=== PATIENT | male | born 1985 | race Caucasian/White ===

== ENCOUNTER 2019-12-03 19:07 | Emergency (ER) | payer MEDICARE, SELFPAY ==
[2019-12-03 20:08] VITALS: BP 142/82; PULSE 60; RESP 18; TEMP 36; O2SAT 100; BMI 50.2
--- NOTE | 2019-12-03 21:29 | ED.DENTAL ---
HPI - Dental/Oral General Chief complaint: Dental/Oral Stated complaint: gum infection Time Seen by Provider: 12/03/19 21:29 History of Present Illness HPI Narrative: This is a 34-year-old male who has been seen here multiple times for extensive dental caries and has same at this visit as well. He states he is having significant difficulty getting evaluated by the dentist and was most recently treated with penicillin. He denies any fevers, chills, difficulty breathing, difficulty swallowing, ear pain. Teeth map: 1. 2. 3. Related Data Previous Rx's Medication Instructions Recorded amoxicillin-pot clavulanate 1 tab PO Q12H 7 Days #14 tab 12/03/19 [Augmentin] amoxicillin-pot clavulanate 1 tab PO Q12H 7 Days #14 tab 12/03/19 [Augmentin] Allergies Allergy/AdvReac Type Severity Reaction Status Date / Time No Known Allergies Allergy Unverified 11/12/19 17:16 [No Known Allergies*] Review of Systems Review of Systems: Pertinent positives and negatives as stated in the HPI. GEN: no fevers, chills, fatigue HEENT: no nasal congestion, sore throat, ear pain NEURO: no headache, dizziness, focal weakness PULM: no cough, shortness of breath CV: no chest pain, palpitations, LE edema ABD: no abdominal pain, nausea, vomiting, diarrhea : no dysuria, urgency, frequency SKIN: no rash ROS otherwise negative x 10 PMFSH Past Medical History Source: nursing notes reviewed Medical History Anxiety Back pain Depression PTSD (post-traumatic stress disorder) Social History Social History Alcohol intake: unknown Smoking Status: Unknown if ever smoked Use of substances other than those prescribed or required for medical reasons: Unknown Advance Directives: No Advance Directives Information Provided: No Physical Exam Vital Signs and I&O and Narrative: Vital Signs and I&O: Vital Signs Temp 96.8 F 12/03/19 20:08 Pulse 54 12/03/19 21:51 Resp 18 12/03/19 21:51 BP 147/95 H 12/03/19 21:51 Pulse Ox 97 12/03/19 21:51 Intake & Output 12/03/19 12/03/1912/03/20 06:59 18:59 06:59 Weight 149.924 kg Body Mass Index 50.2 VITAL SIGNS: Reviewed. GENERAL: Well developed, well nourished, in no acute distress. HEAD: Normocephalic/atraumatic, EYES: PERRLA, EOMI intact without pain, no nystagmus/pallor/icterus noted EARS: Ext canals without abnormality, TMs non-bulging and non-erythematous NOSE: Nares patent bilateral OROPHARYNX: no oral lesions noted, posterior pharynx clear and non-erythematous without noted tonsillar enlargement/erythema/exudates NECK: Supple, no adenopathy LUNGS: Normal breath sounds. No adventitious sounds or accessory muscle use. SpO2<97%> CARDIOVASCULAR: Regular rate and rhythm without noted murmurs, no JVD or lower extremity edema. ABDOMEN: Soft, non-tender, non-distended with bowel sounds. No rigidity. No guarding. No palpable masses or hernias noted MUSCULOSKELETAL: No tenderness, deformities, or effusions noted on gross inspection. EXTREMITIES: No cyanosis, clubbing or edema. SKIN: Inspection of the skin reveals no rashes, ulcerations, jaundice, pallor, or petechiae. NEUROLOGIC: Alert and oriented x 4. Strength and sensation to light touch were grossly intact x 4. Course Course Course Narrative: This is a 34-year-old male with history and clinical presentation consistent with acute on chronic dental caries there is no observed dental abscess at this time however multiple caries are noted that are likely causing pain. Patient was again encouraged to follow up with a dentist and discharged with antibiotics and a regimen of analgesics for pain control. Discharge Plan Discharge Clinical Impression: Dental caries, Toothache Patient Disposition: Home, Self-Care Instructions: Toothache (ED), Mouth Care (ED) Additional Instructions: 1. Tylenol 1000 mg, orally, every 6 hours as needed for pain control. Do not exceed 4000 mg within 24 hours. 2. ibuprofen 400 mg, orally with milk or food, every 6 hours as needed for pain control. 3. Anbesol, [id number] oral pain relief available in all drug stores, apply to gum and tooth area as directed on the outside packaging. 4. follow-up with a dentist by calling the office tomorrow morning and establishing an appointment. The patient and/or family acknowledge understanding of results (as applicable), diagnosis, treatment plan, need for follow up, and symptoms that should prompt a return to the emergency room. Prescriptions: New amoxicillin-pot clavulanate [Augmentin] 875-125 mg tablet 1 tab PO Q12H 7 Days Qty: 14 RF: 0 amoxicillin-pot clavulanate [Augmentin] 875-125 mg tablet 1 tab PO Q12H 7 Days Qty: 14 RF: 0 Referrals: Merry Draper MD [Primary Care Provider] - 2 days ( follow-up on dental caries) Interventions: ED Discharge Assessment Last Done: 12/03/19 21:53 Discharge Date/Time: 12/03/19 21:53
[2019-12-03] MEDS: Amoxicillin/Potassium Clav 875 MG TABLET PO (21:46)
[2019-12-03 21:51] VITALS: BP 147/95; PULSE 54; RESP 18; O2SAT 97
== END 2019-12-03 21:53 | disposition home or self-care (01) ==
PROVIDERS: Emergency Provider Student in an Organized Health Care Education/Training Program; PCP Family Medicine
DX: K02.9 Dental caries, unspecified (principal); K08.89 Other specified disorders of teeth and supporting structures
CPT/HCPCS: 99283; 99284

== ENCOUNTER 2020-01-10 12:02 | Emergency (ER) | payer MEDICARE, SELFPAY ==
[2020-01-10 13:35] VITALS: BP 137/71; PULSE 64; RESP 19; TEMP 36.6; O2SAT 100; BMI 44.1
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
== END 2020-01-10 14:00 | disposition home or self-care (01) ==
PROVIDERS: Emergency Provider Emergency Medicine; PCP Family Medicine
DX: K03.81 Cracked tooth (principal)
CPT/HCPCS: 99283

== ENCOUNTER 2020-03-14 15:24 | Emergency (ER) | payer MEDICARE, SELFPAY ==
[2020-03-14 15:58] VITALS: BP 148/68; PULSE 86; RESP 18; TEMP 36.8; O2SAT 98; BMI 44.5
--- NOTE | 2020-03-14 15:58 | XR_ITS ---
EXAMINATION: XR KNEE, LEFT CLINICAL INFORMATION: Fall 7 days ago with pain COMPARISON: None TECHNIQUE: Four views of the left knee. FINDINGS: Normal alignment with no fracture. Prepatellar soft tissue swelling. No joint effusion. No significant joint space narrowing. Small marginal osteophytes in the lateral compartment. XR/XR knee LT 4V IMPRESSION: No fracture. Prepatellar soft tissue swelling.
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
--- NOTE | 2020-03-14 18:00 | PC.NURSE ---
APPLIED ALESSIO WRAP TO L KNEE AND EDUCATED PATIENT ON USE OF CRUTCHES.
== END 2020-03-14 18:05 | disposition home or self-care (01) ==
PROVIDERS: Emergency Provider Emergency Medicine; PCP Family Medicine
DX: M25.462 Effusion, left knee (principal); M25.562 Pain in left knee
CPT/HCPCS: 73564; 99283

== ENCOUNTER → 2020-04-22 11:52 | Outpatient (BNVA) | payer MEDICARE, SELFPAY | PROVIDERS: PCP Family Medicine; Visit Provider Physician Assistant | DX: S80.02XA Contusion of left knee, initial encounter (principal) | CPT/HCPCS: 99202 ==

== ENCOUNTER 2020-05-12 17:55 | Outpatient (REF) | payer OTHER, SELFPAY ==
--- NOTE | ~2020-05-12 | MR_ITS ---
EXAMINATION: MR KNEE WITHOUT CONTRAST, LEFT CLINICAL INFORMATION: Left knee pressure, numbness, anterior swelling following a fall 1 month ago. Contusion. COMPARISON: Left knee radiographs dated 03/14/2020. Left knee CT dated 11/29/2012. TECHNIQUE: MRI of the knee without contrast was performed using routine sequences on a high-field scanner. FINDINGS: MENISCI: Medial Meniscus: Intact Lateral Meniscus: Bucket-handle tear of the lateral meniscus with approximately 50% of the meniscal volume displaced centrally. Tearing extends from the anterior root to the posterior root. LIGAMENTS: Cruciate: Intact. Collateral: Intact. EXTENSOR MECHANISM: Intact. ARTICULAR CARTILAGE/BONE: Patellofemoral Compartment: Normal. Medial Compartment: Normal. Lateral Compartment: Mild lateral tibial plateau articular cartilage thinning. Small marginal osteophytes. JOINT FLUID AND BURSAE: Trace joint effusion. Mild soft tissue edema overlying the anteromedial aspect of the patella, likely representing a soft tissue contusion. MR/MR knee LT wo con IMPRESSION: 1. Bucket-handle tear of the lateral meniscus with approximately 50% of the meniscal volume displaced centrally. Tearing extends from the anterior root to the posterior root. 2. Mild soft tissue edema along the anteromedial aspect of the patella, likely indicating a soft tissue contusion. 3. Mild lateral compartment arthrosis. Trace joint effusion.
== END 2020-05-12 17:56 | disposition home or self-care (01) ==
LOC: HO.MRI 17:55
PROVIDERS: Visit Provider Physician Assistant
DX: S80.02XA Contusion of left knee, initial encounter (principal)
CPT/HCPCS: 73721

== ENCOUNTER 2020-05-21 15:19 | Emergency (ER) | payer OTHER, SELFPAY ==
[2020-05-21 15:21] VITALS: BP 156/78; PULSE 82; RESP 18; TEMP 36.7; O2SAT 98; BMI 45.6
--- NOTE | 2020-05-21 16:05 | ED_ITS ---
HPI - Dental/Oral General Chief complaint: Dental/Oral Stated complaint: dental pain Time Seen by Provider: 05/21/20 15:41 Source: patient Mode of arrival: ambulatory Limitations: no limitations History of Present Illness HPI Narrative: 34-year-old male with a past medical history of poor dentition, anxiety, PTSD, depression, chronic back pain and gastric bypass for obesity presenting to the ED with complaints of severe dental pain in the lower aspect for the past few days worse today despite taking multiple [id number] Motrin and Tylenol. Reports that he has a dentist that he can follow-up with. Reports he was eating chicken today and bit down on a bone which broke a couple of his teeth and now has worsening pain. Denies any fevers or any other symptoms complaints or concerns at this time. MD Complaint: tooth pain Location: Tooth # (Lower right front teeth) Onset (ago): hour(s) (Prior to arrival) Duration: constant Severity: moderate Relieving factors: nothing Exacerbating factors: chewing Context: history of dental caries (Multiple dental fractures) and poor dental care Treatment prior to arrival: other (See above) Related Data Previous Rx's Medication Instructions Recorded amoxicillin-pot clavulanate 1 tab PO Q12H 7 Days #14 tab 12/03/19 [Augmentin] amoxicillin-pot clavulanate 1 tab PO Q12H 7 Days #14 tab 12/03/19 [Augmentin] hydrocodone-acetaminophen [[place]] 1 tab PO Q4-6H PRN #10 tab 01/10/20 ibuprofen 600 mg PO Q8H PRN #20 tab 01/10/20 penicillin V potassium 500 mg PO BID #14 tab 01/10/20 cephalexin [Keflex] 500 mg PO QID #28 cap 03/14/20 doxycycline monohydrate 100 mg PO BID 10 Days #20 cap 03/14/20 ibuprofen 600 mg PO Q8H PRN #20 tab 03/14/20 tramadol 50 mg PO BID PRN #7 tab 03/14/20 acetaminophen [Tylenol Extra 1,000 mg PO QID PRN #14 tab 05/21/20 Strength] amoxicillin-pot clavulanate 1 tab PO BID 14 Days #28 tab 05/21/20 [Augmentin] ibuprofen 800 mg PO Q8H PRN #14 tab 05/21/20 oxycodone 5 mg PO BID PRN #14 tab 05/21/20 Allergies Allergy/AdvReac Type Severity Reaction Status Date / Time No Known Allergies Allergy Verified 05/21/20 15:21 [No Known Allergies*] Review of Systems Review of Systems: Constitutional : No Fever, No Chills, No changes in PO intake, No difficulty speaking, no recent dental procedure, no heat or cold intolerance while eating, no recent face trauma, ENT/Mouth : + Dental pain, No Sore throt, No Jaw pain, No throat swelling, No swallowing difficulty, no change in voice, No facial swelling, no drooling, no trismus, no bleeding, no lacerations, no tongue swelling, gum swelling, Eyes: No Eye Pain, No periorbital Swelling Cardiovascular : No Chest Pain, No SOB Respiratory : No Cough, No Sputum, No Wheezing, No Smoke Exposure, No Dyspnea Gastrointestinal : No Nausea, No Vomiting, No Diarrhea Genitourinary : No Dysuria Musculoskeletal : No Myalgias Skin : No rash, no facial swelling or redness, Neuro : No Weakness, No Numbness, No Headache Yes all other systems are reviewed and are negative [facility] Past Medical History Attestation statement: The following information was validated with the patient. Medical History Anxiety Back pain Depression PTSD (post-traumatic stress disorder) Surgical History Gastric bypass status for obesity Social History Social History Alcohol intake: unknown Smoking Status: Light tobacco smoker Use of substances other than those prescribed or required for medical reasons: No Advance Directives: No Advance Directives Information Provided: No Current occupational status: unemployed Current occupation: lt hand Physical Exam Vital Signs: Vital Signs: Last Vital Signs Temp 98.0 F 05/21/20 15:21 Pulse 82 05/21/20 15:21 Resp 18 05/21/20 15:21 BP 156/78 H 05/21/20 15:21 Pulse Ox 98 05/21/20 15:21 Body Mass Index 45.6 vital signs have been reviewed as normal and appeared to be correct. Blood pressure normal. Heart rate normal. Respiration rate normal. Temperature normal. Oxygen saturation normal. Appearance: Alert. Oriented X3. No acute distress. Head: Normal external exam. Normocephalic. Atraumatic. Eyes: PERRLA. EOMI. Conjunctiva and sclera normal. Eyelids normal. ENT: EAC normal. TM's Normal. Pharynx normal. Uvula midline. Moist mucous membranes. No trismus noted. No drooling noted. No muffled voice noted. Dentition: Patient with poor dentition throughout with multiple old fractured teeth with multiple dental caries. Gingival within normal limits. No fluctuance. Not consistent with peritonsillar abscess. Not consistent with dental abscess. Not consistent with pharyngeal abscess. No salivary duct obstruction noted. Neck: Normal inspection. Neck supple. FROM. No adenopathy. Thyroid Normal. No meningeal signs. No neck mass noted. Trachea midline. CVS: Normal heart rate and rhythm. Heart sound normal. No murmurs noted. Pulses normal throughout. Respiratory: No respiratory distress. Painless inspiration. Breath sounds normal. No wheezes/rales/rhonchi noted. Chest nontender. No accessory muscle usage noted or decreased air movement noted. Back: Full range of motion noted. Skin: Skin warm and dry. Normal skin color. Normal skin turgor. No rashes/lesions/lacerations noted. Extremities:Extremities exhibit normal range of motion. Extremities nontender. Neuro: Oriented X 3. No motor deficit. No sensory deficit. Reflexes normal. [facility] - Dental/Oral Medical Records Attestation: I reviewed the patient's medical records. Lab Data Attestation: I reviewed the patient's lab results. Discharge Plan Discharge Clinical Impression: Dental caries, Fracture of tooth, Poor dentition Patient Disposition: Home, Self-Care Instructions: Toothache (ED) Prescriptions: New amoxicillin-pot clavulanate [Augmentin] 875-125 mg tablet 1 tab PO BID 14 Days Qty: 28 RF: 0 ibuprofen 800 mg tablet 800 mg PO Q8H PRN (Reason: pain) Qty: 14 RF: 0 oxycodone 5 mg tablet 5 mg PO BID PRN (Reason: pain) Qty: 14 RF: 0 acetaminophen [Tylenol Extra Strength] 500 mg tablet 1,000 mg PO QID PRN (Reason: fever or pain) Qty: 14 RF: 0 No Action amoxicillin-pot clavulanate [Augmentin] 875-125 mg tablet 1 tab PO Q12H 7 Days Qty: 14 RF: 0 amoxicillin-pot clavulanate [Augmentin] 875-125 mg tablet 1 tab PO Q12H 7 Days Qty: 14 RF: 0 penicillin V potassium 500 mg tablet 500 mg PO BID Qty: 14 RF: 0 ibuprofen 600 mg tablet 600 mg PO Q8H PRN (Reason: pain) Qty: 20 RF: 0 hydrocodone-acetaminophen [[place]] 5-325 mg tablet 1 tab PO Q4-6H PRN (Reason: pain) Qty: 10 RF: 0 doxycycline monohydrate 100 mg capsule 100 mg PO BID 10 Days Qty: 20 RF: 0 cephalexin [Keflex] 500 mg capsule 500 mg PO QID Qty: 28 RF: 0 ibuprofen 600 mg tablet 600 mg PO Q8H PRN (Reason: pain) Qty: 20 RF: 0 tramadol 50 mg tablet 50 mg PO BID PRN (Reason: pain) Qty: 7 RF: 0 Referrals: Merry Draper MD [Primary Care Provider] - 2 days Print Language: Qatari
== END 2020-05-21 16:34 | disposition home or self-care (01) ==
PROVIDERS: Emergency Provider Emergency Medicine; PCP Family Medicine
DX: K08.89 Other specified disorders of teeth and supporting structures (principal); K02.9 Dental caries, unspecified; F17.210 Nicotine dependence, cigarettes, uncomplicated; K03.81 Cracked tooth
CPT/HCPCS: 99283

== ENCOUNTER 2020-07-15 14:35 | Emergency (ER) | payer OTHER, SELFPAY ==
[2020-07-15 15:49] VITALS: BP 139/80; PULSE 69; RESP 20; TEMP 37.1; O2SAT 98; BMI 45.6
--- NOTE | 2020-07-15 17:12 | ED.DENTAL ---
HPI - Dental/Oral General Chief complaint: Dental/Oral Stated complaint: dental pain Time Seen by Provider: 07/15/20 16:56 Source: patient Mode of arrival: ambulatory Limitations: no limitations History of Present Illness HPI Narrative: 35 y/o male with history of poor dentition, obesity s/p gastric bypass, anxiety, PTSD who presents to the ER with weeks of worsening right lower dental pain and decay. He called his dentist this morning asking for antibiotics because he is worried about infection. He made an appointment for next week but he was not prescribed antibiotics without being seen. He reports pain and swelling of the area has increased over the last week. He has been taking Motrin without improvement. He is having pain with eating and drinking. He is vomiting saliva. He denies fever, chill, facial swelling, throat swelling, neck swelling. MD Complaint: tooth pain Location: Tooth # (26) Teeth map: 1. decaying rotten tooth with gingival edema Onset (ago): week(s) Duration: constant Severity: severe Severity scale (1-10): 9 Relieving factors: NSAIDs Exacerbating factors: chewing, cold, heat, drinking fluids and swallowing Context: history of dental caries and poor dental care Associated symptoms: gum swelling and pain with swallowing Treatment prior to arrival: none Related Data Previous Rx's Medication Instructions Recorded amoxicillin-pot clavulanate 1 tab PO Q12H 7 Days #14 tab 12/03/19 [Augmentin] amoxicillin-pot clavulanate 1 tab PO Q12H 7 Days #14 tab 12/03/19 [Augmentin] hydrocodone-acetaminophen [[place]] 1 tab PO Q4-6H PRN #10 tab 01/10/20 ibuprofen 600 mg PO Q8H PRN #20 tab 01/10/20 penicillin V potassium 500 mg PO BID #14 tab 01/10/20 cephalexin [Keflex] 500 mg PO QID #28 cap 03/14/20 doxycycline monohydrate 100 mg PO BID 10 Days #20 cap 03/14/20 ibuprofen 600 mg PO Q8H PRN #20 tab 03/14/20 tramadol 50 mg PO BID PRN #7 tab 03/14/20 acetaminophen [Tylenol Extra 1,000 mg PO QID PRN #14 tab 05/21/20 Strength] amoxicillin-pot clavulanate 1 tab PO BID 14 Days #28 tab 05/21/20 [Augmentin] ibuprofen 800 mg PO Q8H PRN #14 tab 05/21/20 oxycodone 5 mg PO BID PRN #14 tab 05/21/20 amoxicillin-pot clavulanate 1 tab PO BID #20 tab 07/15/20 [Augmentin] ondansetron HCl [Zofran] 4 mg PO Q8H PRN #10 tab 07/15/20 tramadol 50 mg PO Q8H PRN #7 tab 07/15/20 Allergies Allergy/AdvReac Type Severity Reaction Status Date / Time No Known Allergies Allergy Verified 05/21/20 15:21 [No Known Allergies*] Review of Systems Review of Systems: Constitutional: No Fever, No Chills ENT/Mouth: No sore throat, No Rhinorrhea, No Swallowing Difficulty, +painful swallowing, +dental pain Cardiovascular: No Chest Pain, No SOB Respiratory: No Cough, No Sputum Gastrointestinal:+ Nausea, + Vomiting, No Diarrhea, No abdominal Pain Genitourinary: No Dysuria, No Urinary Frequency, No Hematuria Skin: No Skin Lesions, No rash Neuro: No Weakness, No Numbness, No Dizziness, + Headache Heme/Lymph: No Bruising, + Lymphadenopathy [facility] Past Medical History Attestation statement: The following information was validated with the patient. Medical History Anxiety Back pain Depression PTSD (post-traumatic stress disorder) Surgical History Gastric bypass status for obesity Social History Social History Alcohol intake: unknown Smoking Status: Light tobacco smoker Advance Directives: No Advance Directives Information Provided: Yes Current occupational status: unemployed Current occupation: lt hand Physical Exam Vital Signs: Vital Signs: Last Vital Signs Temp 98.8 F 07/15/20 15:49 Pulse 69 07/15/20 15:49 Resp 20 07/15/20 15:49 BP 139/80 07/15/20 15:49 Pulse Ox 98 07/15/20 15:49 Body Mass Index 45.6 Const: General: cooperative, no acute distress and well developed Orientation/consciousness: patient oriented x3 HENMT: Head: Yes normal to inspection Ears: hearing grossly normal bilaterally General nose exam: Normal external nose present Face and sinus: Yes normal facial exam Mouth: Normal oral and palatal mucosa present, lip normal, tongue normal, Normal salivary glands and ducts present, oropharynx normal and moist mucous membranes Teeth and gingiva: abnormal tooth and associated gingiva lower right first bicuspid tender, with associated gingival edema, enamel fractured, dentin fractured and pulp exposed and gingiva abnormal edematous and tender Throat: Yes posterior oropharynx normal, Yes tonsils normal and Yes uvula midline Eyes: General: appearance normal, both eyes and all related structures Neck: Neck: Yes normal visual inspection, Yes no lymphadenopathy, Yes trachea midline, Yes supple and No anterior neck swelling Chest: Chest palpation & inspection: normal inspection of the chest Resp: Effort & Inspection: normal respiratory effort and able to speak in complete sentences Neuro: General: patient oriented x3 and moves all extremities Extrem: General: Yes normal to inspection Psych: Appearance: disheveled Mental Status: mental status grossly normal Speech and movement: Normal speech and movement present and Clear speech present Course Course Course Narrative: 35 y/o male presenting with acute on chronic tooth pain - right lower anterior tooth with decay and tenderness. No palpable abscess. No facial or neck swelling. Normal voice. Afebrile. No signs of systemic infection or Isai's angina. He has an appointment early next week with his dentist. Will treat with PO antibiotics and pain medication to get him through the weekend. Patient is agreeable with plan and stable for d/c home. Critical Care Time Critical Care Time Critical Care Time: No Discharge Plan Discharge Clinical Impression: Toothache Patient Disposition: Home, Self-Care Instructions: Toothache (ED) Additional Instructions: Follow up with your dentist as scheduled on Saturday. Take the prescribed antibiotic as directed. Take the prescribed medication as needed for pain. Do not drive after taking this medication. If you have worsening symptoms come back to the ER for further evaluation. Prescriptions: New amoxicillin-pot clavulanate [Augmentin] 875-125 mg tablet 1 tab PO BID Qty: 20 RF: 0 tramadol 50 mg tablet 50 mg PO Q8H PRN (Reason: pain) Qty: 7 RF: 0 ondansetron HCl [Zofran] 4 mg tablet 4 mg PO Q8H PRN (Reason: nausea and vomiting) Qty: 10 RF: 0 No Action amoxicillin-pot clavulanate [Augmentin] 875-125 mg tablet 1 tab PO Q12H 7 Days Qty: 14 RF: 0 amoxicillin-pot clavulanate [Augmentin] 875-125 mg tablet 1 tab PO Q12H 7 Days Qty: 14 RF: 0 amoxicillin-pot clavulanate [Augmentin] 875-125 mg tablet 1 tab PO BID 14 Days Qty: 28 RF: 0 ibuprofen 800 mg tablet 800 mg PO Q8H PRN (Reason: pain) Qty: 14 RF: 0 oxycodone 5 mg tablet 5 mg PO BID PRN (Reason: pain) Qty: 14 RF: 0 acetaminophen [Tylenol Extra Strength] 500 mg tablet 1,000 mg PO QID PRN (Reason: fever or pain) Qty: 14 RF: 0 penicillin V potassium 500 mg tablet 500 mg PO BID Qty: 14 RF: 0 ibuprofen 600 mg tablet 600 mg PO Q8H PRN (Reason: pain) Qty: 20 RF: 0 hydrocodone-acetaminophen [[place]] 5-325 mg tablet 1 tab PO Q4-6H PRN (Reason: pain) Qty: 10 RF: 0 doxycycline monohydrate 100 mg capsule 100 mg PO BID 10 Days Qty: 20 RF: 0 cephalexin [Keflex] 500 mg capsule 500 mg PO QID Qty: 28 RF: 0 ibuprofen 600 mg tablet 600 mg PO Q8H PRN (Reason: pain) Qty: 20 RF: 0 tramadol 50 mg tablet 50 mg PO BID PRN (Reason: pain) Qty: 7 RF: 0 Stand Alone Forms: Dental Emergency Numbers
[2020-07-15] MEDS: Amoxicillin/Potassium Clav 875 MG TABLET PO (17:34)
[2020-07-15] MEDS: Ketorolac Tromethamine 60 MG/2 ML VIAL IM (17:34)
== END 2020-07-15 17:44 | disposition home or self-care (01) ==
PROVIDERS: Emergency Provider Emergency Medicine; PCP Family Medicine
DX: K08.89 Other specified disorders of teeth and supporting structures (principal); F17.200 Nicotine dependence, unspecified, uncomplicated; Z71.6 Tobacco abuse counseling; Z79.899 Other long term (current) drug therapy
CPT/HCPCS: 96372; 99283; J1885

== ENCOUNTER 2020-08-28 13:19 | Emergency (ER) | payer OTHER, SELFPAY ==
[2020-08-28 13:23] VITALS: BP 155/87; PULSE 110; RESP 18; TEMP 36.6; O2SAT 98; BMI 41.8
[2020-08-28] MEDS: predniSONE 20 MG TABLET 60 MG PO (14:00)
--- NOTE | 2020-09-17 19:57 | ED_ITS ---
HPI - General Adult General Chief complaint: General Medical Stated complaint: GOUT FLARE Time Seen by Provider: 08/28/20 13:42 History of Present Illness HPI narrative: Patient complains of right ankle pain same as prior gout flares with no injury, no other joints are hurting now there is no fever no chills and symptoms are exactly the same as prior Related Data Previous Rx's Medication Instructions Recorded amoxicillin-pot clavulanate 1 tab PO Q12H 7 Days #14 tab 12/03/19 [Augmentin] amoxicillin-pot clavulanate 1 tab PO Q12H 7 Days #14 tab 12/03/19 [Augmentin] hydrocodone-acetaminophen [[place]] 1 tab PO Q4-6H PRN #10 tab 01/10/20 ibuprofen 600 mg PO Q8H PRN #20 tab 01/10/20 penicillin V potassium 500 mg PO BID #14 tab 01/10/20 cephalexin [Keflex] 500 mg PO QID #28 cap 03/14/20 doxycycline monohydrate 100 mg PO BID 10 Days #20 cap 03/14/20 ibuprofen 600 mg PO Q8H PRN #20 tab 03/14/20 tramadol 50 mg PO BID PRN #7 tab 03/14/20 acetaminophen [Tylenol Extra 1,000 mg PO QID PRN #14 tab 05/21/20 Strength] amoxicillin-pot clavulanate 1 tab PO BID 14 Days #28 tab 05/21/20 [Augmentin] ibuprofen 800 mg PO Q8H PRN #14 tab 05/21/20 oxycodone 5 mg PO BID PRN #14 tab 05/21/20 amoxicillin-pot clavulanate 1 tab PO BID #20 tab 07/15/20 [Augmentin] ondansetron HCl [Zofran] 4 mg PO Q8H PRN #10 tab 07/15/20 tramadol 50 mg PO Q8H PRN #7 tab 07/15/20 acetaminophen 1,000 mg PO QID PRN #30 tab 08/28/20 oxycodone 5 mg PO Q6H PRN #14 tab 08/28/20 prednisone 60 mg PO DAILY 4 Days #12 tab 08/28/20 Allergies Allergy/AdvReac Type Severity Reaction Status Date / Time No Known Allergies Allergy Verified 05/21/20 15:21 [No Known Allergies*] Review of Systems Review of Systems: Positive right ankle pain Negatives are no fever no chills no dizziness no weakness no fainting or feeling faint no chest pain no abdominal pain no nausea or vomiting no dysuria no back pain no other extremity pains or swelling Yes all other systems are reviewed and are negative [facility] Past Medical History Source: nursing notes reviewed Medical History Anxiety Back pain Depression PTSD (post-traumatic stress disorder) Surgical History Gastric bypass status for obesity Social History Social History Alcohol intake: unknown Advance Directives: No Advance Directives Information Provided: No Current occupational status: unemployed Current occupation: lt hand Physical Exam Vital Signs: Vital Signs: Last Vital Signs Temp 97.8 F 08/28/20 13:23 Pulse 110 H 08/28/20 13:23 Resp 18 08/28/20 13:23 BP 155/87 H 08/28/20 13:23 Pulse Ox 98 08/28/20 13:23 Body Mass Index 41.8 General appearance no distress Head is normocephalic atraumatic Neck is supple The chest is clear to auscultation bilateral The extremities the right ankle had full range of motion with some discomfort with range of motion, there was no cyst significant swelling but there is some very mild redness to the medial ankle with no other surrounding erythema, no fluctuance no wound and neurovascular intact distal Skin no other rashes Course Course Course Narrative: Patient with history of gout in the same area with no evidence of a septic joint, cellulitis very unlikely and is treated for gout Discharge Plan Discharge Clinical Impression: Gout Patient Disposition: Home, Self-Care Additional Instructions: we are treating gout in the right ankle with prednisone which hopefully will reduce inflammation and improve pain For additional pain control you could use Tylenol and if needed narcotic oxycodone Call your stomach surgeon to find out if it is safe to take Motrin after gastric bypass We do not recommend this medication as there have been some cases of bleeding in patients who take Motrin after gastric bypass and would recommend do not take Motrin unless your surgeon recommends Prescriptions: New prednisone 20 mg tablet 60 mg PO DAILY 4 Days Qty: 12 RF: 0 acetaminophen 500 mg tablet 1,000 mg PO QID PRN (Reason: pain) Qty: 30 RF: 0 oxycodone 5 mg tablet 5 mg PO Q6H PRN (Reason: pain) Qty: 14 RF: 0 No Action amoxicillin-pot clavulanate [Augmentin] 875-125 mg tablet 1 tab PO Q12H 7 Days Qty: 14 RF: 0 amoxicillin-pot clavulanate [Augmentin] 875-125 mg tablet 1 tab PO Q12H 7 Days Qty: 14 RF: 0 amoxicillin-pot clavulanate [Augmentin] 875-125 mg tablet 1 tab PO BID 14 Days Qty: 28 RF: 0 ibuprofen 800 mg tablet 800 mg PO Q8H PRN (Reason: pain) Qty: 14 RF: 0 oxycodone 5 mg tablet 5 mg PO BID PRN (Reason: pain) Qty: 14 RF: 0 acetaminophen [Tylenol Extra Strength] 500 mg tablet 1,000 mg PO QID PRN (Reason: fever or pain) Qty: 14 RF: 0 penicillin V potassium 500 mg tablet 500 mg PO BID Qty: 14 RF: 0 ibuprofen 600 mg tablet 600 mg PO Q8H PRN (Reason: pain) Qty: 20 RF: 0 hydrocodone-acetaminophen [[place]] 5-325 mg tablet 1 tab PO Q4-6H PRN (Reason: pain) Qty: 10 RF: 0 doxycycline monohydrate 100 mg capsule 100 mg PO BID 10 Days Qty: 20 RF: 0 cephalexin [Keflex] 500 mg capsule 500 mg PO QID Qty: 28 RF: 0 ibuprofen 600 mg tablet 600 mg PO Q8H PRN (Reason: pain) Qty: 20 RF: 0 tramadol 50 mg tablet 50 mg PO BID PRN (Reason: pain) Qty: 7 RF: 0 amoxicillin-pot clavulanate [Augmentin] 875-125 mg tablet 1 tab PO BID Qty: 20 RF: 0 tramadol 50 mg tablet 50 mg PO Q8H PRN (Reason: pain) Qty: 7 RF: 0 ondansetron HCl [Zofran] 4 mg tablet 4 mg PO Q8H PRN (Reason: nausea and vomiting) Qty: 10 RF: 0 Interventions: ED Discharge Assessment Last Done: 08/28/20 14:06 Discharge Date/Time: 08/28/20 14:07
== END 2020-08-28 14:07 | disposition home or self-care (01) ==
PROVIDERS: Emergency Provider Emergency Medicine; PCP Family Medicine
DX: M10.9 Gout, unspecified (principal); M25.571 Pain in right ankle and joints of right foot
CPT/HCPCS: 99283

== ENCOUNTER 2020-11-04 19:50 | Emergency (ER) | payer OTHER, SELFPAY ==
[2020-11-04 19:54] VITALS: BP 133/85; PULSE 72; RESP 16; TEMP 36.1; O2SAT 98; BMI 42.3
--- NOTE | 2020-11-04 23:38 | ED_ITS ---
HPI - Extremity Injury (Lower) General Chief Complaint: Extremity Injury, Lower Stated Complaint: ankle pain Time Seen by Provider: 11/05/20 00:25 Source: patient Mode of arrival: ambulatory Limitations: no limitations History of Present Illness HPI Narrative: 35-year-old male presents with gout flare. States that because of his gastric bypass he can only tolerate prednisone for his flares. Onset (ago): day(s) (3) Injury: Right: ankle Severity: moderate Severity scale (1-10): 7 Relieving factors: nothing Exacerbating factors: weight bearing, movement and palpation Other symptoms: none Related Data Previous Rx's Medication Instructions Recorded amoxicillin 875 mg-potassium 1 tab PO Q12H 7 Days #14 tab 12/03/19 clavulanate 125 mg tablet (Augmentin) amoxicillin 875 mg-potassium 1 tab PO Q12H 7 Days #14 tab 12/03/19 clavulanate 125 mg tablet (Augmentin) hydrocodone 5 mg-acetaminophen 325 1 tab PO Q4-6H PRN #10 tab 01/10/20 mg tablet ([place]) ibuprofen 600 mg tablet 600 mg PO Q8H PRN #20 tab 01/10/20 penicillin V potassium 500 mg 500 mg PO BID #14 tab 01/10/20 tablet cephalexin 500 mg capsule (Keflex) 500 mg PO QID #28 cap 03/14/20 doxycycline monohydrate 100 mg 100 mg PO BID 10 Days #20 cap 03/14/20 capsule ibuprofen 600 mg tablet 600 mg PO Q8H PRN #20 tab 03/14/20 tramadol 50 mg tablet 50 mg PO BID PRN #7 tab 03/14/20 acetaminophen 500 mg tablet 1,000 mg PO QID PRN #14 tab 05/21/20 (Tylenol Extra Strength) amoxicillin 875 mg-potassium 1 tab PO BID 14 Days #28 tab 05/21/20 clavulanate 125 mg tablet (Augmentin) ibuprofen 800 mg tablet 800 mg PO Q8H PRN #14 tab 05/21/20 oxycodone 5 mg tablet 5 mg PO BID PRN #14 tab 05/21/20 amoxicillin 875 mg-potassium 1 tab PO BID #20 tab 07/15/20 clavulanate 125 mg tablet (Augmentin) ondansetron HCl 4 mg tablet 4 mg PO Q8H PRN #10 tab 07/15/20 (Zofran) tramadol 50 mg tablet 50 mg PO Q8H PRN #7 tab 07/15/20 acetaminophen 500 mg tablet 1,000 mg PO QID PRN #30 tab 08/28/20 oxycodone 5 mg tablet 5 mg PO Q6H PRN #14 tab 08/28/20 prednisone 20 mg tablet 60 mg PO DAILY 4 Days #12 tab 08/28/20 oxycodone 5 mg tablet 5 mg PO Q8H PRN #5 tab 11/05/20 prednisone 20 mg tablet 60 mg PO DAILY 5 Days #15 tab 11/05/20 Allergies Allergy/AdvReac Type Severity Reaction Status Date / Time No Known Allergies Allergy Verified 05/21/20 15:21 [No Known Allergies*] Review of Systems Review of Systems: Constitutional: No Fever, No Chills ENT/Mouth: No Ear Pain, No Hoarseness, No sore throat Eyes: No Eye Pain, No Swelling, No Redness, No Foreign Body Cardiovascular: No Chest Pain, No SOB Respiratory: No Cough, No Dyspnea Gastrointestinal: No Nausea, No Vomiting, No Diarrhea, No abdominal Pain Genitourinary: No Dysuria, No Hematuria Musculoskeletal: positive right ankle pain and swelling, No Myalgias, No Joint Swelling Skin: No Skin lacerations, No rash Neuro: No Weakness, No Numbness, No Paresthesias, No Loss of Consciousness, No Dizziness, No Headache Psych: No Anxiety/Panic, No Depression Heme/Lymph: no easy bruising, no Lymphadenopathy Endocrine: No Polyuria, No Polydipsia Yes all other systems are reviewed and are negative [facility] Past Medical History Attestation statement: The following information was validated with the patient. Source: old records reviewed Medical History Anxiety Back pain Depression PTSD (post-traumatic stress disorder) Surgical History Gastric bypass status for obesity Social History Social History Alcohol intake: unknown Advance Directives: No Current occupational status: unemployed Current occupation: lt hand Physical Exam Vital Signs: Vital Signs: Last Vital Signs Temp 97 F 11/04/20 19:54 Pulse 72 11/04/20 19:54 Resp 16 11/04/20 19:54 BP 133/85 11/04/20 19:54 Pulse Ox 98 11/04/20 19:54 Body Mass Index 42.3 Appearance: Alert. Oriented X3. No acute distress. Eyes: Pupils equal, round and reactive to light. ENT: Pharynx normal. Neck: Normal inspection. Neck supple. CVS: Normal heart rate and rhythm. Pulses normal. Respiratory: No respiratory distress. Breath sounds normal. Abdomen: Soft and nontender. Skin: Skin warm and dry. Normal skin color. Normal skin turgor. Extremities: No lower extremity edema. Right ankle swelling and pain, full range of motion brisk capillary refill and equal pulses to all extremities. Neuro: No motor deficit. No sensory deficit. Cranial nerves 2-12 intact. Course Course Course Narrative: 35-year-old male presents with gout flare. Will treat with prednisone, states that he cannot take any other medications for gout flare because of his gastric bypass. Patient verbalized understanding of the grease plan care discharge home. MDM - Extremity Injury (Lower) MDM Narrative Medical decision making narrative: Gout Medical Records Attestation: I reviewed the patient's medical records. Discharge Plan Discharge Clinical Impression: Gout attack Qualifiers: Gout site: ankle Gout etiology: unspecified cause Laterality: unspecified laterality Qualified Code(s): M10.9 - Gout, unspecified Patient Disposition: Home, Self-Care Instructions: Low Purine Diet (ED), Gout (ED), Swollen Ankle Joint (ED) Additional Instructions: You were evaluated for gout attack. Please take prednisone 60 mg for the next 5 days. Please use oxycodone as needed for pain management. This medication and narcotic and has high risk for addiction and abuse. Do not drive or operate machinery while taking this medication. Please follow-up the primary care physician as you may need daily medications to reduce further gout flaring. Thank you for choosing this emergency department for evaluation. Please follow-up with primary care physician as needed. Return to the emergency department for any new, concerning, or worsening symptoms. Prescriptions: New prednisone 20 mg tablet 60 mg PO DAILY 5 Days Qty: 15 RF: 0 oxycodone 5 mg tablet 5 mg PO Q8H PRN (Reason: pain) Qty: 5 RF: 0 No Action amoxicillin-pot clavulanate [Augmentin] 875-125 mg tablet 1 tab PO Q12H 7 Days Qty: 14 RF: 0 amoxicillin-pot clavulanate [Augmentin] 875-125 mg tablet 1 tab PO Q12H 7 Days Qty: 14 RF: 0 amoxicillin-pot clavulanate [Augmentin] 875-125 mg tablet 1 tab PO BID 14 Days Qty: 28 RF: 0 ibuprofen 800 mg tablet 800 mg PO Q8H PRN (Reason: pain) Qty: 14 RF: 0 oxycodone 5 mg tablet 5 mg PO BID PRN (Reason: pain) Qty: 14 RF: 0 acetaminophen [Tylenol Extra Strength] 500 mg tablet 1,000 mg PO QID PRN (Reason: fever or pain) Qty: 14 RF: 0 prednisone 20 mg tablet 60 mg PO DAILY 4 Days Qty: 12 RF: 0 acetaminophen 500 mg tablet 1,000 mg PO QID PRN (Reason: pain) Qty: 30 RF: 0 oxycodone 5 mg tablet 5 mg PO Q6H PRN (Reason: pain) Qty: 14 RF: 0 penicillin V potassium 500 mg tablet 500 mg PO BID Qty: 14 RF: 0 ibuprofen 600 mg tablet 600 mg PO Q8H PRN (Reason: pain) Qty: 20 RF: 0 hydrocodone-acetaminophen [[place]] 5-325 mg tablet 1 tab PO Q4-6H PRN (Reason: pain) Qty: 10 RF: 0 doxycycline monohydrate 100 mg capsule 100 mg PO BID 10 Days Qty: 20 RF: 0 cephalexin [Keflex] 500 mg capsule 500 mg PO QID Qty: 28 RF: 0 ibuprofen 600 mg tablet 600 mg PO Q8H PRN (Reason: pain) Qty: 20 RF: 0 tramadol 50 mg tablet 50 mg PO BID PRN (Reason: pain) Qty: 7 RF: 0 amoxicillin-pot clavulanate [Augmentin] 875-125 mg tablet 1 tab PO BID Qty: 20 RF: 0 tramadol 50 mg tablet 50 mg PO Q8H PRN (Reason: pain) Qty: 7 RF: 0 ondansetron HCl [Zofran] 4 mg tablet 4 mg PO Q8H PRN (Reason: nausea and vomiting) Qty: 10 RF: 0
[2020-11-05 00:49] VITALS: BP 155/78; PULSE 73; RESP 16; TEMP 36.8; O2SAT 100
[2020-11-05] MEDS: oxyCODONE HCl Immed Release 5 MG TABLET PO (00:50)
[2020-11-05] MEDS: predniSONE 20 MG TABLET 60 MG PO (00:50)
== END 2020-11-05 01:02 | disposition home or self-care (01) ==
PROVIDERS: Emergency Provider Student in an Organized Health Care Education/Training Program; PCP Family Medicine
DX: M10.9 Gout, unspecified (principal); Z79.899 Other long term (current) drug therapy; Z98.84 Bariatric surgery status
CPT/HCPCS: 99283; 99284

== ENCOUNTER 2020-12-20 18:25 | Emergency (ER) | payer OTHER, SELFPAY ==
[2020-12-20 19:13] VITALS: PULSE 67; RESP 16; TEMP 36.8; O2SAT 95; BMI 40.7
--- NOTE | 2020-12-20 19:24 | ED.DENTAL ---
HPI - Dental/Oral General Chief complaint: Dental/Oral Stated complaint: Dental Fractures, pain Time Seen by Provider: 12/20/20 19:23 Source: patient Mode of arrival: ambulatory Limitations: no limitations History of Present Illness HPI Narrative: 35-year-old male with a past medical history poor dentition presenting to the ED with complaints of gum pain after he had his bottom 3 front teeth extracted prior to arrival at [facility] at the [facility] due to last night when he was eating with a fork his bottom front teeth broke and he went there for further evaluation treatment. He reports that they only gave him Motrin Tylenol. He reports his pain is severe and he needs something stronger. He denies any other symptoms complaints concerns or injuries at this time. MD Complaint: tooth pain Location: Tooth # (He just had his bottom front teeth extracted prior to arrival) Onset (ago): day(s) (Since yesterday worse today after the extraction) Duration: worsening Severity scale (1-10): >10 Relieving factors: nothing Exacerbating factors: other (Everything) Context: history of dental caries, trauma (mechanism) and poor dental care Treatment prior to arrival: other (Sent home with only Tylenol and Motrin) Related Data Previous Rx's Medication Instructions Recorded amoxicillin 875 mg-potassium 1 tab PO Q12H 7 Days #14 tab 12/03/19 clavulanate 125 mg tablet (Augmentin) amoxicillin 875 mg-potassium 1 tab PO Q12H 7 Days #14 tab 12/03/19 clavulanate 125 mg tablet (Augmentin) hydrocodone 5 mg-acetaminophen 325 1 tab PO Q4-6H PRN #10 tab 01/10/20 mg tablet ([place]) ibuprofen 600 mg tablet 600 mg PO Q8H PRN #20 tab 01/10/20 penicillin V potassium 500 mg 500 mg PO BID #14 tab 01/10/20 tablet cephalexin 500 mg capsule (Keflex) 500 mg PO QID #28 cap 03/14/20 doxycycline monohydrate 100 mg 100 mg PO BID 10 Days #20 cap 03/14/20 capsule ibuprofen 600 mg tablet 600 mg PO Q8H PRN #20 tab 03/14/20 tramadol 50 mg tablet 50 mg PO BID PRN #7 tab 03/14/20 acetaminophen 500 mg tablet 1,000 mg PO QID PRN #14 tab 05/21/20 (Tylenol Extra Strength) amoxicillin 875 mg-potassium 1 tab PO BID 14 Days #28 tab 05/21/20 clavulanate 125 mg tablet (Augmentin) ibuprofen 800 mg tablet 800 mg PO Q8H PRN #14 tab 05/21/20 oxycodone 5 mg tablet 5 mg PO BID PRN #14 tab 05/21/20 amoxicillin 875 mg-potassium 1 tab PO BID #20 tab 07/15/20 clavulanate 125 mg tablet (Augmentin) ondansetron HCl 4 mg tablet 4 mg PO Q8H PRN #10 tab 07/15/20 (Zofran) tramadol 50 mg tablet 50 mg PO Q8H PRN #7 tab 07/15/20 acetaminophen 500 mg tablet 1,000 mg PO QID PRN #30 tab 08/28/20 oxycodone 5 mg tablet 5 mg PO Q6H PRN #14 tab 08/28/20 prednisone 20 mg tablet 60 mg PO DAILY 4 Days #12 tab 08/28/20 oxycodone 5 mg tablet 5 mg PO Q8H PRN #5 tab 11/05/20 prednisone 20 mg tablet 60 mg PO DAILY 5 Days #15 tab 11/05/20 amoxicillin 875 mg-potassium 1 tab PO BID 14 Days #28 tab 12/20/20 clavulanate 125 mg tablet (Augmentin) oxycodone 5 mg tablet 5 mg PO Q6H PRN #14 tab 12/20/20 Allergies Allergy/AdvReac Type Severity Reaction Status Date / Time No Known Allergies Allergy Verified 12/20/20 19:13 [No Known Allergies*] Review of Systems Review of Systems: Constitutional : No Fever, No Chills, No changes in PO intake, No difficulty speaking, no recent dental procedure, no heat or cold intolerance while eating, no recent face trauma, ENT/Mouth : + Dental pain//gum pain, No Sore throat, No Jaw pain, No throat swelling, No swallowing difficulty, no change in voice, No facial swelling, no drooling, no trismus, no bleeding, no lacerations, no tongue swelling Eyes: No Eye Pain, No periorbital Swelling Cardiovascular : No Chest Pain, No SOB Respiratory : No Cough, No Sputum, No Wheezing, No Smoke Exposure, No Dyspnea Gastrointestinal : No Nausea, No Vomiting, No Diarrhea Genitourinary : No Dysuria Musculoskeletal : No Myalgias Skin : No rash, no facial swelling or redness, Neuro : No Weakness, No Numbness, No Headache Yes all other systems are reviewed and are negative [facility] Past Medical History Attestation statement: The following information was validated with the patient. Medical History Anxiety Back pain Depression PTSD (post-traumatic stress disorder) Surgical History Gastric bypass status for obesity Social History Social History Alcohol intake: unknown Advance Directives: No Current occupational status: unemployed Current occupation: lt hand Physical Exam Vital Signs: Vital Signs: Last Vital Signs Temp 98.2 F 12/20/20 19:13 Pulse 67 12/20/20 19:13 Resp 16 12/20/20 19:13 Pulse Ox 95 12/20/20 19:13 Body Mass Index 40.7 vital signs have been reviewed as normal and appeared to be correct. Blood pressure normal. Heart rate normal. Respiration rate normal. Temperature normal. Oxygen saturation normal. Appearance: Alert. Oriented X3. No acute distress. Head: Normal external exam. Normocephalic. Atraumatic. Eyes: PERRLA. EOMI. Conjunctiva and sclera normal. Eyelids normal. ENT: EAC normal. TM's Normal. Pharynx normal. Uvula midline. Moist mucous membranes. No trismus noted. No drooling noted. No muffled voice noted. Dentition: Patient with poor dentition throughout with multiple old fractured teeth with multiple dental caries. He has multiple dental extractions. Gingiva appears inflamed and erythematous otherwise within normal limits. No fluctuance. Not consistent with peritonsillar abscess. Not consistent with dental abscess. No salivary duct obstruction noted. Neck: Normal inspection. Neck supple. FROM. No adenopathy. Thyroid Normal. No meningeal signs. No neck mass noted. Trachea midline. CVS: Normal heart rate and rhythm. Heart sound normal. No murmurs noted. Pulses normal throughout. Respiratory: No respiratory distress. Painless inspiration. Breath sounds normal. No wheezes/rales/rhonchi noted. Chest nontender. No accessory muscle usage noted or decreased air movement noted. Back: Full range of motion noted. Skin: Skin warm and dry. Normal skin color. Normal skin turgor. No rashes/lesions/lacerations noted. Extremities:Extremities exhibit normal range of motion. Extremities nontender. Neuro: Oriented X 3. No motor deficit. No sensory deficit. Reflexes normal. Course Course Course Narrative: Patient status post multiple dental extractions prior to arrival by dentist at the [facility] was only given Motrin Tylenol presenting for severe pain therefore at this time will DC home with oxycodone and Augmentin along with instructions to follow-up with dentist and to return if any new or worsening symptoms. Patient understands agrees with this plan. [facility] - Dental/Oral Medical Records Attestation: I reviewed the patient's medical records. Discharge Plan Discharge Clinical Impression: Toothache Patient Disposition: Home, Self-Care Instructions: Tooth Extraction (DC) Prescriptions: New amoxicillin-pot clavulanate [Augmentin] 875-125 mg tablet 1 tab PO BID 14 Days Qty: 28 RF: 0 oxycodone 5 mg tablet 5 mg PO Q6H PRN (Reason: pain) Qty: 14 RF: 0 No Action amoxicillin-pot clavulanate [Augmentin] 875-125 mg tablet 1 tab PO Q12H 7 Days Qty: 14 RF: 0 amoxicillin-pot clavulanate [Augmentin] 875-125 mg tablet 1 tab PO Q12H 7 Days Qty: 14 RF: 0 amoxicillin-pot clavulanate [Augmentin] 875-125 mg tablet 1 tab PO BID 14 Days Qty: 28 RF: 0 ibuprofen 800 mg tablet 800 mg PO Q8H PRN (Reason: pain) Qty: 14 RF: 0 oxycodone 5 mg tablet 5 mg PO BID PRN (Reason: pain) Qty: 14 RF: 0 acetaminophen [Tylenol Extra Strength] 500 mg tablet 1,000 mg PO QID PRN (Reason: fever or pain) Qty: 14 RF: 0 prednisone 20 mg tablet 60 mg PO DAILY 4 Days Qty: 12 RF: 0 acetaminophen 500 mg tablet 1,000 mg PO QID PRN (Reason: pain) Qty: 30 RF: 0 oxycodone 5 mg tablet 5 mg PO Q6H PRN (Reason: pain) Qty: 14 RF: 0 penicillin V potassium 500 mg tablet 500 mg PO BID Qty: 14 RF: 0 ibuprofen 600 mg tablet 600 mg PO Q8H PRN (Reason: pain) Qty: 20 RF: 0 hydrocodone-acetaminophen [[place]] 5-325 mg tablet 1 tab PO Q4-6H PRN (Reason: pain) Qty: 10 RF: 0 doxycycline monohydrate 100 mg capsule 100 mg PO BID 10 Days Qty: 20 RF: 0 cephalexin [Keflex] 500 mg capsule 500 mg PO QID Qty: 28 RF: 0 ibuprofen 600 mg tablet 600 mg PO Q8H PRN (Reason: pain) Qty: 20 RF: 0 tramadol 50 mg tablet 50 mg PO BID PRN (Reason: pain) Qty: 7 RF: 0 amoxicillin-pot clavulanate [Augmentin] 875-125 mg tablet 1 tab PO BID Qty: 20 RF: 0 tramadol 50 mg tablet 50 mg PO Q8H PRN (Reason: pain) Qty: 7 RF: 0 ondansetron HCl [Zofran] 4 mg tablet 4 mg PO Q8H PRN (Reason: nausea and vomiting) Qty: 10 RF: 0 prednisone 20 mg tablet 60 mg PO DAILY 5 Days Qty: 15 RF: 0 oxycodone 5 mg tablet 5 mg PO Q8H PRN (Reason: pain) Qty: 5 RF: 0 Referrals: Physician,Unknown J [Primary Care Provider] - 2 days (your pcp and dentist ) Stand Alone Forms: Work/School Release Print Language: Icelandic
[2020-12-20 19:31] VITALS: BP 157/88; PULSE 111; RESP 15
[2020-12-20] MEDS: oxyCODONE HCl Immed Release 5 MG TABLET PO (19:35)
[2020-12-20] MEDS: Amoxicillin/Potassium Clav 875 MG TABLET PO (19:35)
== END 2020-12-20 19:40 | disposition home or self-care (01) ==
PROVIDERS: Emergency Provider Internal Medicine
DX: K08.89 Other specified disorders of teeth and supporting structures (principal)
CPT/HCPCS: 99283

== ENCOUNTER 2021-07-09 17:34 | Emergency (ER) | payer OTHER, SELFPAY ==
--- NOTE | 2021-07-09 17:41 | PC.NURSE ---
called for triage x 2 no answer
[2021-07-09 17:52] VITALS: BP 152/87; PULSE 100; RESP 18; TEMP 36.8; O2SAT 95; BMI 42.5
[2021-07-09 18:18] LABS: IDNOW Serial# 9DB6401D; Influenza A Negative (Negative); Influenza B2 Negative (Negative)
[2021-07-09 18:20] LABS: IDNOW Serial# 16C4AD1C
[2021-07-09 18:21] LABS: COVID-19 Test Negative (Negative)
--- NOTE | 2021-07-10 00:02 | ED_ITS ---
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 He otherwise denies any swallowing or breathing difficulties. Related Data Previous Rx's Medication Instructions Recorded amoxicillin 875 mg-potassium 1 tab PO Q12H 7 Days #14 tab 12/03/19 clavulanate 125 mg tablet (Augmentin) amoxicillin 875 mg-potassium 1 tab PO Q12H 7 Days #14 tab 12/03/19 clavulanate 125 mg tablet (Augmentin) hydrocodone 5 mg-acetaminophen 325 1 tab PO Q4-6H PRN #10 tab 01/10/20 mg tablet ([place]) ibuprofen 600 mg tablet 600 mg PO Q8H PRN #20 tab 01/10/20 penicillin V potassium 500 mg 500 mg PO BID #14 tab 01/10/20 tablet cephalexin 500 mg capsule (Keflex) 500 mg PO QID #28 cap 03/14/20 doxycycline monohydrate 100 mg 100 mg PO BID 10 Days #20 cap 03/14/20 capsule ibuprofen 600 mg tablet 600 mg PO Q8H PRN #20 tab 03/14/20 tramadol 50 mg tablet 50 mg PO BID PRN #7 tab 03/14/20 acetaminophen 500 mg tablet 1,000 mg PO QID PRN #14 tab 05/21/20 (Tylenol Extra Strength) amoxicillin 875 mg-potassium 1 tab PO BID 14 Days #28 tab 05/21/20 clavulanate 125 mg tablet (Augmentin) ibuprofen 800 mg tablet 800 mg PO Q8H PRN #14 tab 05/21/20 oxycodone 5 mg tablet 5 mg PO BID PRN #14 tab 05/21/20 amoxicillin 875 mg-potassium 1 tab PO BID #20 tab 07/15/20 clavulanate 125 mg tablet (Augmentin) ondansetron HCl 4 mg tablet 4 mg PO Q8H PRN #10 tab 07/15/20 (Zofran) tramadol 50 mg tablet 50 mg PO Q8H PRN #7 tab 07/15/20 acetaminophen 500 mg tablet 1,000 mg PO QID PRN #30 tab 08/28/20 oxycodone 5 mg tablet 5 mg PO Q6H PRN #14 tab 08/28/20 prednisone 20 mg tablet 60 mg PO DAILY 4 Days #12 tab 08/28/20 oxycodone 5 mg tablet 5 mg PO Q8H PRN #5 tab 11/05/20 prednisone 20 mg tablet 60 mg PO DAILY 5 Days #15 tab 11/05/20 amoxicillin 875 mg-potassium 1 tab PO BID 14 Days #28 tab 12/20/20 clavulanate 125 mg tablet (Augmentin) oxycodone-acetaminophen 5 mg-325 1 tab PO Q6H PRN #10 tab 12/21/20 mg tablet tramadol 50 mg tablet 50 mg PO Q8H PRN #7 tab 07/10/21 Allergies Allergy/AdvReac Type Severity Reaction Status Date / Time No Known Allergies Allergy Verified 12/20/20 19:13 [No Known Allergies*] Review of Systems Review of Systems: Pertinent positives and negatives as stated in HPI 10 point review of systems is otherwise negative. PMFSH Past Medical History Source: nursing notes reviewed Medical History Anxiety Back pain Depression PTSD (post-traumatic stress disorder) Surgical History Gastric bypass status for obesity Social History Social History Alcohol intake: unknown Advance Directives: No Advance Directives Information Provided: No Current occupational status: unemployed Current occupation: lt hand Physical Exam Vital Signs: Vital Signs: Last Vital Signs Temp 98.3 F 07/09/21 17:52 Pulse 100 07/09/21 17:52 Resp 18 07/09/21 17:52 BP 152/87 H 07/09/21 17:52 Pulse Ox 95 07/09/21 17:52 BMI result Body Mass Index 42.5 VITAL SIGNS: Reviewed. GENERAL: Well developed, well nourished, in mild distress. HEAD: Normocephalic/atraumatic EYES: PERRLA, EOMI EARS: Ext canals without abnormality OROPHARYNX: no oral lesions noted, posterior pharynx clear, multiple dental caries, noted evidence of right upper molar removal without gingival edema or evidence of infection, no trismus LUNGS: Normal breath sounds. No adventitious sounds or accessory muscle use. SpO2<95> CARDIOVASCULAR: Regular rate and rhythm without noted murmurs ABDOMEN: Soft, non-tender, non-distended with bowel sounds. SKIN: Inspection of the skin reveals no rashes NEUROLOGIC: Alert and oriented x 4. Course Course Course Narrative: 36-year-old male with history and clinical presentation consistent with dental pain. Patient received Lollicaine, Tylenol as well as a dose of Toradol. Who is otherwise discharged home in stable condition. MDM - Dental/Oral Lab Data Labs: Lab Results 07/09/21 07/09/21 Range/Units 17:57 17:57 COVID-19 (MICHELE) Negative (Negative) COVID-19 Clin Com See Note Influenza Type A (CORNELIUS) Negative (Negative) Influenza Type B (CORNELIUS) Negative (Negative) Influenza A & B Note See Note Discharge Plan Discharge Clinical Impression: Pain, dental Patient Disposition: Home, Self-Care Instructions: Toothache (ED) Additional Instructions: You have been provided with a topical numbing medication called Lollicaine that will help alleviate some of your pain as well. Please follow-up with your primary care provider by calling the office 1st thing in the morning. Return to the ER for worsening symptoms. Prescriptions: New tramadol 50 mg tablet 50 mg PO Q8H PRN (Reason: pain) Qty: 7 0RF No Action amoxicillin-pot clavulanate [Augmentin] 875-125 mg tablet 1 tab PO Q12H 7 Days Qty: 14 0RF amoxicillin-pot clavulanate [Augmentin] 875-125 mg tablet 1 tab PO Q12H 7 Days Qty: 14 0RF amoxicillin-pot clavulanate [Augmentin] 875-125 mg tablet 1 tab PO BID 14 Days Qty: 28 0RF ibuprofen 800 mg tablet 800 mg PO Q8H PRN (Reason: pain) Qty: 14 0RF oxycodone 5 mg tablet 5 mg PO BID PRN (Reason: pain) Qty: 14 0RF acetaminophen [Tylenol Extra Strength] 500 mg tablet 1,000 mg PO QID PRN (Reason: fever or pain) Qty: 14 0RF prednisone 20 mg tablet 60 mg PO DAILY 4 Days Qty: 12 0RF acetaminophen 500 mg tablet 1,000 mg PO QID PRN (Reason: pain) Qty: 30 0RF oxycodone 5 mg tablet 5 mg PO Q6H PRN (Reason: pain) Qty: 14 0RF penicillin V potassium 500 mg tablet 500 mg PO BID Qty: 14 0RF ibuprofen 600 mg tablet 600 mg PO Q8H PRN (Reason: pain) Qty: 20 0RF hydrocodone-acetaminophen [[place]] 5-325 mg tablet 1 tab PO Q4-6H PRN (Reason: pain) Qty: 10 0RF Rx Instructions: for 3 days doxycycline monohydrate 100 mg capsule 100 mg PO BID 10 Days Qty: 20 0RF cephalexin [Keflex] 500 mg capsule 500 mg PO QID Qty: 28 0RF ibuprofen 600 mg tablet 600 mg PO Q8H PRN (Reason: pain) Qty: 20 0RF tramadol 50 mg tablet 50 mg PO BID PRN (Reason: pain) Qty: 7 0RF Rx Instructions: for 3 days amoxicillin-pot clavulanate [Augmentin] 875-125 mg tablet 1 tab PO BID Qty: 20 0RF tramadol 50 mg tablet 50 mg PO Q8H PRN (Reason: pain) Qty: 7 0RF ondansetron HCl [Zofran] 4 mg tablet 4 mg PO Q8H PRN (Reason: nausea and vomiting) Qty: 10 0RF prednisone 20 mg tablet 60 mg PO DAILY 5 Days Qty: 15 0RF oxycodone 5 mg tablet 5 mg PO Q8H PRN (Reason: pain) Qty: 5 0RF Rx Instructions: Gout flare amoxicillin-pot clavulanate [Augmentin] 875-125 mg tablet 1 tab PO BID 14 Days Qty: 28 0RF oxycodone-acetaminophen 5-325 mg tablet 1 tab PO Q6H PRN (Reason: pain) Qty: 10 0RF Referrals: Merry Draper MD [Primary Care Provider] -
[2021-07-10] MEDS: Acetaminophen 325 MG TABLET 975 MG PO (01:16)
[2021-07-10] MEDS: Ketorolac Tromethamine 15 MG/ML VIAL IM (01:18)
== END 2021-07-10 01:20 | disposition home or self-care (01) ==
PROVIDERS: Emergency Provider Student in an Organized Health Care Education/Training Program; PCP Family Medicine
DX: K08.89 Other specified disorders of teeth and supporting structures (principal); Z20.822 Contact with and (suspected) exposure to COVID-19
CPT/HCPCS: 87502; 87635; 96372; 99282; 99284; J1885

== ENCOUNTER 2022-02-18 05:08 | Emergency (ER) | payer OTHER, SELFPAY ==
[2022-02-18 05:39] VITALS: BP 142/88; PULSE 74; RESP 16; TEMP 36.6; O2SAT 97; BMI 41.8
[2022-02-18] MEDS: Amoxicillin 500 MG CAPSULE PO (06:05)
--- NOTE | 2022-02-18 06:13 | ED.DENTAL ---
HPI - Dental/Oral General Chief complaint: Dental/Oral Stated complaint: tooth infection Time Seen by Provider: 02/18/22 06:00 Source: patient Mode of arrival: ambulatory Limitations: no limitations History of Present Illness HPI Narrative: 36-year-old male came in for evaluation of left upper central incisor tooth, patient had a dental workup and root canal in that tooth now wheeze noticed pain and swelling in the gum around it, no fever, no chills, no facial swelling, no difficulty swallowing saliva. Related Data Previous Rx's Medication Instructions Recorded amoxicillin 875 mg-potassium 1 tab PO Q12H 7 days #14 tabs 12/03/19 clavulanate 125 mg tablet (Augmentin) amoxicillin 875 mg-potassium 1 tab PO Q12H 7 days #14 tabs 12/03/19 clavulanate 125 mg tablet (Augmentin) hydrocodone 5 mg-acetaminophen 325 1 tab PO Q4-6H PRN pain #10 tabs 01/09/20 mg tablet ([place]) ibuprofen 600 mg tablet 600 mg PO Q8H PRN pain #20 tabs 01/10/20 penicillin V potassium 500 mg 500 mg PO BID #14 tabs 01/10/20 tablet cephalexin 500 mg capsule (Keflex) 500 mg PO QID #28 caps 03/14/20 doxycycline monohydrate 100 mg 100 mg PO BID 10 days #20 caps 03/14/20 capsule ibuprofen 600 mg tablet 600 mg PO Q8H PRN pain #20 tabs 03/14/20 tramadol 50 mg tablet 50 mg PO BID PRN pain #7 tabs 03/14/20 acetaminophen 500 mg tablet 1,000 mg PO QID PRN fever or pain 05/21/20 (Tylenol Extra Strength) #14 tabs amoxicillin 875 mg-potassium 1 tab PO BID 14 days #28 tabs 05/21/20 clavulanate 125 mg tablet (Augmentin) ibuprofen 800 mg tablet 800 mg PO Q8H PRN pain #14 tabs 05/21/20 oxycodone 5 mg tablet 5 mg PO BID PRN pain #14 tabs 05/21/20 amoxicillin 875 mg-potassium 1 tab PO BID #20 tabs 07/15/20 clavulanate 125 mg tablet (Augmentin) ondansetron HCl 4 mg tablet 4 mg PO Q8H PRN nausea and 07/15/20 (Zofran) vomiting #10 tabs tramadol 50 mg tablet 50 mg PO Q8H PRN pain #7 tabs 07/15/20 acetaminophen 500 mg tablet 1,000 mg PO QID PRN pain #30 tabs 08/28/20 oxycodone 5 mg tablet 5 mg PO Q6H PRN pain #14 tabs 08/28/20 prednisone 20 mg tablet 60 mg PO DAILY 4 days #12 tabs 08/28/20 oxycodone 5 mg tablet 5 mg PO Q8H PRN pain #5 tabs 11/05/20 prednisone 20 mg tablet 60 mg PO DAILY 5 days #15 tabs 11/05/20 amoxicillin 875 mg-potassium 1 tab PO BID 14 days #28 tabs 12/20/20 clavulanate 125 mg tablet (Augmentin) oxycodone-acetaminophen 5 mg-325 1 tab PO Q6H PRN pain #10 tabs 12/21/20 mg tablet tramadol 50 mg tablet 50 mg PO Q8H PRN pain #7 tabs 07/10/21 amoxicillin 500 mg tablet 500 mg PO TID #20 tabs 02/18/22 ibuprofen 600 mg tablet 600 mg PO TID PRN pain #14 tabs 02/18/22 Allergies Allergy/AdvReac Type Severity Reaction Status Date / Time No Known Allergies Allergy Verified 12/20/20 19:13 [No Known Allergies*] Review of Systems Review of Systems: All other systems are reviewed and are negative Constitutional: Reports as per HPI and Reports no additional constitutional complaints Eyes: Reports as per HPI and Reports no additional eye complaints Reports system reviewed and no additional complaints, except as documented Cardiovascular: Reports as per HPI and Reports no additional cardiovascular complaints Respiratory: Reports as per HPI and Reports no additional respiratory complaints Gastrointestinal: Reports as per HPI and Reports no additional gastrointestinal complaints Genitourinary: Reports no additional female genitourinary complaints Musculoskeletal: Reports no additional musculoskeletal complaints Skin/Breast: Reports system reviewed and no additional complaints, except as docu Psychiatric: Reports no additional psychiatric complaints Endocrine: Reports no additional endocrine complaints Hematologic/Lymphatic: Reports no additional hematologic/lymphatic complaints Allergic/Immunologic: Reports no additional allergic/immunologic complaints Reports system reviewed and no additional complaints, except as documented and Reports Abnormal speech present PMFSH Past Medical History Medical History Anxiety Back pain Depression PTSD (post-traumatic stress disorder) Surgical History Gastric bypass status for obesity Social History Social History Alcohol intake: unknown Advance Directives: No Current occupational status: unemployed Current occupation: lt hand Physical Exam Vital Signs: Vital Signs: Last Vital Signs Temp 98 F 02/18/22 05:39 Pulse 74 02/18/22 05:39 Resp 16 02/18/22 05:39 BP 142/88 H 02/18/22 05:39 Pulse Ox 97 02/18/22 05:39 O2 Del Method 02/18/22 05:39 BMI result Body Mass Index 41.8 Vital signs have been reviewed as appeared to be correct. Blood pressure normal. Heart rate normal. Respiration rate normal. Temperature normal. Oxygen saturation normal. Appearance: Alert. Oriented X3. No acute distress. Head: Normal external exam. Normocephalic. Atraumatic. No Goodman signs noted. No raccoon eyes noted Dental exam: Tenderness over left upper central incisor tooth, pus drainage from the gum above it, no discrete abscess or fluctuation. Eyes: PERRLA. EOMI. Conjunctiva and sclera normal. Eyelids normal. ENT: TM's Normal. Pharynx normal. Uvula midline. Moist mucous membranes. No trismus noted. No drooling noted. No muffled voice noted. Neck: Normal inspection. Neck supple. FROM. No adenopathy. Thyroid Normal. No meningeal signs. No neck mass noted. CVS: Normal heart rate and rhythm. Heart sound normal. No murmurs noted. Pulses normal throughout. Respiratory: No respiratory distress. Painless inspiration. Breath sounds normal. No wheezes/rales/rhonchi noted. Chest nontender. No accessory muscle usage noted or decreased air movement noted. Abdomen: Soft and nontender. Bowel sounds normal in all 4 quadrants. No distention noted. No organomegaly noted. No visible injury noted. Back: No CVA tenderness. Full range of motion noted. Skin: Skin warm and dry. Normal skin color. Normal skin turgor. No rashes/lesions/lacerations noted. Extremities: No lower extremity edema. Extremities exhibit normal range of motion. Extremities nontender. Neuro: Oriented X 3. Cranial nerve exam: II-XII are grossly intact No motor deficit. No sensory deficit. Reflexes normal. Course Course Course Narrative: Dental infection with mild gingivitis will start the patient on amoxicillin and pain medication patient will walk into the dentist clinic after the holiday. Medications Administered Discontinued Medications Generic Name Dose Route Start Last Admin Trade Name Freq PRN Reason Stop Dose Admin Amoxicillin 500 mg 02/18/22 06:01 02/18/22 06:05 Amoxicillin 500 Mg Capsule PO 02/18/22 06:02 500 mg ONCE ONE Administration Medical Decision Making Differential Diagnosis Differential Diagnoses: The differential diagnosis associated with the presentation includes (Dental pain, dental infection, gingivitis, gingival abscess.) Discharge Plan Discharge Clinical Impression: Toothache, Dental infection Patient Disposition: Home, Self-Care Instructions: Toothache (ED) Prescriptions: New amoxicillin 500 mg tablet 500 mg PO TID Qty: 20 0RF ibuprofen 600 mg tablet 600 mg PO TID PRN (Reason: pain) Qty: 14 0RF No Action amoxicillin-pot clavulanate [Augmentin] 875-125 mg tablet 1 tab PO Q12H 7 Days Qty: 14 0RF amoxicillin-pot clavulanate [Augmentin] 875-125 mg tablet 1 tab PO Q12H 7 Days Qty: 14 0RF amoxicillin-pot clavulanate [Augmentin] 875-125 mg tablet 1 tab PO BID 14 Days Qty: 28 0RF ibuprofen 800 mg tablet 800 mg PO Q8H PRN (Reason: pain) Qty: 14 0RF oxycodone 5 mg tablet 5 mg PO BID PRN (Reason: pain) Qty: 14 0RF acetaminophen [Tylenol Extra Strength] 500 mg tablet 1,000 mg PO QID PRN (Reason: fever or pain) Qty: 14 0RF prednisone 20 mg tablet 60 mg PO DAILY 4 Days Qty: 12 0RF acetaminophen 500 mg tablet 1,000 mg PO QID PRN (Reason: pain) Qty: 30 0RF oxycodone 5 mg tablet 5 mg PO Q6H PRN (Reason: pain) Qty: 14 0RF penicillin V potassium 500 mg tablet 500 mg PO BID Qty: 14 0RF ibuprofen 600 mg tablet 600 mg PO Q8H PRN (Reason: pain) Qty: 20 0RF hydrocodone-acetaminophen [[place]] 5-325 mg tablet 1 tab PO Q4-6H PRN (Reason: pain) Qty: 10 0RF Rx Instructions: for 3 days doxycycline monohydrate 100 mg capsule 100 mg PO BID 10 Days Qty: 20 0RF cephalexin [Keflex] 500 mg capsule 500 mg PO QID Qty: 28 0RF ibuprofen 600 mg tablet 600 mg PO Q8H PRN (Reason: pain) Qty: 20 0RF tramadol 50 mg tablet 50 mg PO BID PRN (Reason: pain) Qty: 7 0RF Rx Instructions: for 3 days amoxicillin-pot clavulanate [Augmentin] 875-125 mg tablet 1 tab PO BID Qty: 20 0RF tramadol 50 mg tablet 50 mg PO Q8H PRN (Reason: pain) Qty: 7 0RF ondansetron HCl [Zofran] 4 mg tablet 4 mg PO Q8H PRN (Reason: nausea and vomiting) Qty: 10 0RF prednisone 20 mg tablet 60 mg PO DAILY 5 Days Qty: 15 0RF oxycodone 5 mg tablet 5 mg PO Q8H PRN (Reason: pain) Qty: 5 0RF Rx Instructions: Gout flare tramadol 50 mg tablet 50 mg PO Q8H PRN (Reason: pain) Qty: 7 0RF amoxicillin-pot clavulanate [Augmentin] 875-125 mg tablet 1 tab PO BID 14 Days Qty: 28 0RF oxycodone-acetaminophen 5-325 mg tablet 1 tab PO Q6H PRN (Reason: pain) Qty: 10 0RF
== END 2022-02-18 06:28 | disposition home or self-care (01) ==
PROVIDERS: Emergency Provider Emergency Medicine; PCP Registered Nurse
DX: K04.7 Periapical abscess without sinus (principal); K08.89 Other specified disorders of teeth and supporting structures; Z79.899 Other long term (current) drug therapy
CPT/HCPCS: 99284

== ENCOUNTER 2022-06-17 00:10 | Emergency (ER) | payer OTHER, SELFPAY ==
--- NOTE | ~2022-06-17 | XR_ITS ---
EXAMINATION: XR SHOULDER, LEFT CLINICAL INFORMATION: Acute left shoulder pain COMPARISON: None available. TECHNIQUE: Two views of the left shoulder. FINDINGS: There is anatomic alignment across the glenohumeral joint. No acute fracture is seen. The acromioclavicular joint is intact with mild degenerative change. XR/XR shoulder LT min 2V IMPRESSION: No acute findings.
--- NOTE | ~2022-06-17 | XR_ITS ---
EXAMINATION: XR ELBOW, LEFT CLINICAL INFORMATION: Acute left elbow pain COMPARISON: None available. TECHNIQUE: AP, lateral, and oblique views of the left elbow. FINDINGS: Alignment across the elbow is anatomic. No acute fracture is seen. No significant joint effusion. XR/XR elbow LT min 3V IMPRESSION: No acute findings.
[2022-06-17 00:17] VITALS: BP 132/73; PULSE 84; RESP 18; TEMP 36.4; O2SAT 98; BMI 41.9
[2022-06-17] MEDS: Acetaminophen 325 MG TABLET 975 MG PO (01:52)
[2022-06-17] MEDS: Ibuprofen 600 MG TABLET PO (01:53)
--- NOTE | 2022-06-17 02:14 | ED.GENADULT ---
HPI - General Adult General Chief complaint: Recheck/Abnormal Lab/Rx Stated complaint: fall, hand/shoulder inj Time Seen by Provider: 06/17/22 00:56 Source: patient Mode of arrival: ambulatory Limitations: no limitations History of Present Illness HPI narrative: 37-year-old male presents with left shoulder and left elbow pain. Symptoms started today. However, patient reports having fallen several weeks ago during the snow and ice. He has suffered injury to the left upper extremity at that time as well. Today, he fell out of his SUV. Fell onto his left shoulder and elbow. He currently has pain that is moderate in nature. It is worse with movement. The pain does not radiate. He does have some numbness and tingling in his hand which he had before. There are no deformities. Reports difficulty moving his left shoulder secondary to pain. He believes is muscular as a post skeletal. There are no prior treatment. Related Data Previous Rx's Medication Instructions Recorded amoxicillin 875 mg-potassium 1 tab PO Q12H 7 days #14 tabs 12/03/19 clavulanate 125 mg tablet (Augmentin) amoxicillin 875 mg-potassium 1 tab PO Q12H 7 days #14 tabs 12/03/19 clavulanate 125 mg tablet (Augmentin) hydrocodone 5 mg-acetaminophen 325 1 tab PO Q4-6H PRN pain #10 tabs 01/09/20 mg tablet ([place]) ibuprofen 600 mg tablet 600 mg PO Q8H PRN pain #20 tabs 01/10/20 penicillin V potassium 500 mg 500 mg PO BID #14 tabs 01/10/20 tablet cephalexin 500 mg capsule (Keflex) 500 mg PO QID #28 caps 03/14/20 doxycycline monohydrate 100 mg 100 mg PO BID 10 days #20 caps 03/14/20 capsule ibuprofen 600 mg tablet 600 mg PO Q8H PRN pain #20 tabs 03/14/20 tramadol 50 mg tablet 50 mg PO BID PRN pain #7 tabs 03/14/20 acetaminophen 500 mg tablet 1,000 mg PO QID PRN fever or pain 05/21/20 (Tylenol Extra Strength) #14 tabs amoxicillin 875 mg-potassium 1 tab PO BID 14 days #28 tabs 05/21/20 clavulanate 125 mg tablet (Augmentin) ibuprofen 800 mg tablet 800 mg PO Q8H PRN pain #14 tabs 05/21/20 oxycodone 5 mg tablet 5 mg PO BID PRN pain #14 tabs 05/21/20 amoxicillin 875 mg-potassium 1 tab PO BID #20 tabs 07/15/20 clavulanate 125 mg tablet (Augmentin) ondansetron HCl 4 mg tablet 4 mg PO Q8H PRN nausea and 07/15/20 (Zofran) vomiting #10 tabs tramadol 50 mg tablet 50 mg PO Q8H PRN pain #7 tabs 07/15/20 acetaminophen 500 mg tablet 1,000 mg PO QID PRN pain #30 tabs 08/28/20 oxycodone 5 mg tablet 5 mg PO Q6H PRN pain #14 tabs 08/28/20 prednisone 20 mg tablet 60 mg PO DAILY 4 days #12 tabs 08/28/20 oxycodone 5 mg tablet 5 mg PO Q8H PRN pain #5 tabs 11/05/20 prednisone 20 mg tablet 60 mg PO DAILY 5 days #15 tabs 11/05/20 amoxicillin 875 mg-potassium 1 tab PO BID 14 days #28 tabs 12/20/20 clavulanate 125 mg tablet (Augmentin) oxycodone-acetaminophen 5 mg-325 1 tab PO Q6H PRN pain #10 tabs 12/21/20 mg tablet tramadol 50 mg tablet 50 mg PO Q8H PRN pain #7 tabs 07/10/21 amoxicillin 500 mg tablet 500 mg PO TID #20 tabs 02/18/22 ibuprofen 600 mg tablet 600 mg PO TID PRN pain #14 tabs 02/18/22 acetaminophen 500 mg tablet 1,000 mg PO QID PRN fever or pain 06/17/22 (Tylenol Extra Strength) #30 tabs Allergies Allergy/AdvReac Type Severity Reaction Status Date / Time No Known Allergies Allergy Verified 12/20/20 19:13 [No Known Allergies*] [facility] Past Medical History Medical History Anxiety Back pain Depression PTSD (post-traumatic stress disorder) Surgical History Gastric bypass status for obesity Social History Social History Alcohol intake: unknown Smoked in Last 30 Days: No Use of substances other than those prescribed or required for medical reasons: No Advance Directives: No Advance Directives Information Provided: Yes Current occupational status: unemployed Current occupation: lt hand Physical Exam ED Vital Signs: Vital Signs - 24 hr 06/17/22 00:17 Temperature 97.5 F Pulse Rate 84 Respiratory Rate 18 Blood Pressure 132/73 Pulse Oximetry 98 Oxygen Delivery Method Room Air BMI result Body Mass Index 41.9 GEN: Well developed, no acute distress, alert, oriented HEENT: Normocephalic, atraumatic, normal external ears, nose appears normal Eyes: Normal to appearance Neck: Supple, no lymphadenopathy Respiratory: Talks in complete sentences, no respiratory distress Extremities: No clubbing cyanosis or edema, no deformity to the left upper extremity, mild tenderness left bicep area. Slightly decreased range of motion secondary to pain at the shoulder. Normal range of motion of the left elbow, neurovascularly intact Neurologic: No focal neurologic deficits, cranial nerves 2-12 intact, gait normal Skin: No rash Course Course Course Narrative: 37-year-old male presents with musculoskeletal pain after fall today. On exam there is no deformity, slight tenderness, suspect contusion, sprain or strain. Will obtain x-rays and provide patient with analgesia Reevaluation(s) Reevaluation #1: X-rays are negative for fracture dislocation will discharge with recommendations for analgesia and follow-up as needed. Time: 02:24 Medications Administered Discontinued Medications Generic Name Dose Route Start Last Admin Trade Name Freq PRN Reason Stop Dose Admin Acetaminophen 975 mg 06/17/22 01:41 06/17/22 01:52 Acetaminophen 325 Mg Tablet PO 06/17/22 01:42 975 mg ONCE ONE Administration Ibuprofen 600 mg 06/17/22 01:41 06/17/22 01:53 Ibuprofen 600 Mg Tablet PO 06/17/22 01:42 600 mg ONCE ONE Administration Medical Decision Making Medical Decision Making MDM Narrative: 37-year-old male presents with left upper extremity pain. Examination reveals mild tenderness, no deformity, neurovascular intact. Will obtain x-rays to rule out fracture. Differential diagnosis would include sprain, strain, contusion, ligamentous injury, fracture Differential Diagnosis Differential Diagnoses: The differential diagnosis associated with the presentation includes (sprain, strain, contusion, ligamentous injury, fracture) Independent Interpretation I performed an independent interpretation of an: Plain X-Ray (Left shoulder and elbow no acute traumatic injury) Prescription Management I considered prescription management with: Pain Medication Discharge Plan Discharge Clinical Impression: Arm pain, left Patient Disposition: Home, Self-Care Instructions: Arm Pain (ED) Prescriptions: New acetaminophen [Tylenol Extra Strength] 500 mg tablet 1,000 mg PO QID PRN (Reason: fever or pain) Qty: 30 0RF No Action amoxicillin-pot clavulanate [Augmentin] 875-125 mg tablet 1 tab PO Q12H 7 Days Qty: 14 0RF amoxicillin-pot clavulanate [Augmentin] 875-125 mg tablet 1 tab PO Q12H 7 Days Qty: 14 0RF amoxicillin-pot clavulanate [Augmentin] 875-125 mg tablet 1 tab PO BID 14 Days Qty: 28 0RF ibuprofen 800 mg tablet 800 mg PO Q8H PRN (Reason: pain) Qty: 14 0RF oxycodone 5 mg tablet 5 mg PO BID PRN (Reason: pain) Qty: 14 0RF acetaminophen [Tylenol Extra Strength] 500 mg tablet 1,000 mg PO QID PRN (Reason: fever or pain) Qty: 14 0RF prednisone 20 mg tablet 60 mg PO DAILY 4 Days Qty: 12 0RF acetaminophen 500 mg tablet 1,000 mg PO QID PRN (Reason: pain) Qty: 30 0RF oxycodone 5 mg tablet 5 mg PO Q6H PRN (Reason: pain) Qty: 14 0RF penicillin V potassium 500 mg tablet 500 mg PO BID Qty: 14 0RF ibuprofen 600 mg tablet 600 mg PO Q8H PRN (Reason: pain) Qty: 20 0RF hydrocodone-acetaminophen [[place]] 5-325 mg tablet 1 tab PO Q4-6H PRN (Reason: pain) Qty: 10 0RF Rx Instructions: for 3 days doxycycline monohydrate 100 mg capsule 100 mg PO BID 10 Days Qty: 20 0RF cephalexin [Keflex] 500 mg capsule 500 mg PO QID Qty: 28 0RF ibuprofen 600 mg tablet 600 mg PO Q8H PRN (Reason: pain) Qty: 20 0RF tramadol 50 mg tablet 50 mg PO BID PRN (Reason: pain) Qty: 7 0RF Rx Instructions: for 3 days amoxicillin-pot clavulanate [Augmentin] 875-125 mg tablet 1 tab PO BID Qty: 20 0RF tramadol 50 mg tablet 50 mg PO Q8H PRN (Reason: pain) Qty: 7 0RF ondansetron HCl [Zofran] 4 mg tablet 4 mg PO Q8H PRN (Reason: nausea and vomiting) Qty: 10 0RF prednisone 20 mg tablet 60 mg PO DAILY 5 Days Qty: 15 0RF oxycodone 5 mg tablet 5 mg PO Q8H PRN (Reason: pain) Qty: 5 0RF Rx Instructions: Gout flare tramadol 50 mg tablet 50 mg PO Q8H PRN (Reason: pain) Qty: 7 0RF amoxicillin-pot clavulanate [Augmentin] 875-125 mg tablet 1 tab PO BID 14 Days Qty: 28 0RF oxycodone-acetaminophen 5-325 mg tablet 1 tab PO Q6H PRN (Reason: pain) Qty: 10 0RF amoxicillin 500 mg tablet 500 mg PO TID Qty: 20 0RF ibuprofen 600 mg tablet 600 mg PO TID PRN (Reason: pain) Qty: 14 0RF Referrals: Physician,Unknown J [Primary Care Provider] - 1 week
[2022-06-17 03:13] VITALS: BP 121/64; PULSE 74; RESP 18; TEMP 36.9; O2SAT 98
--- NOTE | 2022-06-17 03:14 | PC.NURSE ---
pt ambulatory at discharge. skin pwd. vss. pt provided with discharge packet. pt verbalized understanding of discharge plan
== END 2022-06-17 03:15 | disposition home or self-care (01) ==
PROVIDERS: Emergency Provider Emergency Medicine
DX: M79.602 Pain in left arm (principal); R79.89 Other specified abnormal findings of blood chemistry; Z79.899 Other long term (current) drug therapy
CPT/HCPCS: 73030; 73080; 99283; 99284

== ENCOUNTER 2022-08-01 23:23 | Emergency (ER) | payer OTHER, SELFPAY ==
[2022-08-01 23:31] VITALS: BP 134/88; PULSE 107; RESP 16; TEMP 36.9; O2SAT 98; BMI 43.3
[2022-08-01] MEDS: predniSONE 20 MG TABLET 40 MG PO (23:48)
--- NOTE | 2022-08-01 23:49 | ED_ITS ---
HPI - General Adult General Chief complaint: General Medical Stated complaint: left ankle pain Time Seen by Provider: 08/01/22 23:39 Source: patient Mode of arrival: ambulatory Limitations: no limitations History of Present Illness HPI narrative: This is a 37-year-old male presenting to the emergency department for evaluation of atraumatic right-sided ankle pain since this morning. Patient reports this feels like his typical episode of gout he reports over 100 episodes of gout particularly in the right ankle, patient reports last night he had a few sticks of beef jerky, woke up this morning with pain to the right ankle this is always happens when he eats beef jerky. Reports his ankle is swollen, painful to move. He denies fevers, chills, numbness, tingling, overlying skin changes, chest pain, shortness of breath, trauma to the area. Related Data Previous Rx's Medication Instructions Recorded amoxicillin 875 mg-potassium 1 tab PO Q12H 7 days #14 tabs 12/03/19 clavulanate 125 mg tablet (Augmentin) amoxicillin 875 mg-potassium 1 tab PO Q12H 7 days #14 tabs 12/03/19 clavulanate 125 mg tablet (Augmentin) hydrocodone 5 mg-acetaminophen 325 1 tab PO Q4-6H PRN pain #10 tabs 01/09/20 mg tablet ([place]) ibuprofen 600 mg tablet 600 mg PO Q8H PRN pain #20 tabs 01/10/20 penicillin V potassium 500 mg 500 mg PO BID #14 tabs 01/10/20 tablet cephalexin 500 mg capsule (Keflex) 500 mg PO QID #28 caps 03/14/20 doxycycline monohydrate 100 mg 100 mg PO BID 10 days #20 caps 03/14/20 capsule ibuprofen 600 mg tablet 600 mg PO Q8H PRN pain #20 tabs 03/14/20 tramadol 50 mg tablet 50 mg PO BID PRN pain #7 tabs 03/14/20 acetaminophen 500 mg tablet 1,000 mg PO QID PRN fever or pain 05/21/20 (Tylenol Extra Strength) #14 tabs amoxicillin 875 mg-potassium 1 tab PO BID 14 days #28 tabs 05/21/20 clavulanate 125 mg tablet (Augmentin) ibuprofen 800 mg tablet 800 mg PO Q8H PRN pain #14 tabs 05/21/20 oxycodone 5 mg tablet 5 mg PO BID PRN pain #14 tabs 05/21/20 amoxicillin 875 mg-potassium 1 tab PO BID #20 tabs 07/15/20 clavulanate 125 mg tablet (Augmentin) ondansetron HCl 4 mg tablet 4 mg PO Q8H PRN nausea and 07/15/20 (Zofran) vomiting #10 tabs tramadol 50 mg tablet 50 mg PO Q8H PRN pain #7 tabs 07/15/20 acetaminophen 500 mg tablet 1,000 mg PO QID PRN pain #30 tabs 08/28/20 oxycodone 5 mg tablet 5 mg PO Q6H PRN pain #14 tabs 08/28/20 prednisone 20 mg tablet 60 mg PO DAILY 4 days #12 tabs 08/28/20 oxycodone 5 mg tablet 5 mg PO Q8H PRN pain #5 tabs 11/05/20 prednisone 20 mg tablet 60 mg PO DAILY 5 days #15 tabs 11/05/20 amoxicillin 875 mg-potassium 1 tab PO BID 14 days #28 tabs 12/20/20 clavulanate 125 mg tablet (Augmentin) oxycodone-acetaminophen 5 mg-325 1 tab PO Q6H PRN pain #10 tabs 12/21/20 mg tablet tramadol 50 mg tablet 50 mg PO Q8H PRN pain #7 tabs 07/10/21 amoxicillin 500 mg tablet 500 mg PO TID #20 tabs 02/18/22 ibuprofen 600 mg tablet 600 mg PO TID PRN pain #14 tabs 02/18/22 acetaminophen 500 mg tablet 1,000 mg PO QID PRN fever or pain 06/17/22 (Tylenol Extra Strength) #30 tabs tramadol 50 mg tablet 50 mg PO Q8H PRN pain #5 tabs 06/17/22 prednisone 20 mg tablet 40 mg PO DAILY 5 days #10 tabs 08/01/22 tramadol 50 mg tablet 50 mg PO BID PRN pain #6 tabs 08/01/22 Allergies Allergy/AdvReac Type Severity Reaction Status Date / Time No Known Allergies Allergy Verified 12/20/20 19:13 [No Known Allergies*] Review of Systems Review of Systems: Constitutional : No Weight loss, No Fever, No Chills, No Fatigue, No Malaise ENT/Mouth : No sore throat, No Rhinorrhea Eyes: No Eye Pain, No Swelling, No Redness Cardiovascular : No Chest Pain, No SOB, No Dyspnea on Exertion, No Orthopnea, No Edema, No Palpitations Respiratory : No Cough, No Sputum, No Wheezing Gastrointestinal : No Nausea, No Vomiting, No Diarrhea, No Constipation, No abdominal Pain, No Hematochezia, No Melena Genitourinary : No Dysuria, No Urinary Frequency, No Hematuria, Musculoskeletal : + joint pain, No Myalgias, + Joint Swelling Skin : No Skin Lesions, No rash Neuro : No Weakness, No Numbness, No Dizziness, No Headache Psych : No Anxiety/Panic, No Depression All other systems reviewed and are negative Yes all other systems are reviewed and are negative [facility], [facility] Past Medical History Attestation statement: The following information was validated with the patient. Source: old records reviewed and nursing notes reviewed Medical History Anxiety Back pain Depression PTSD (post-traumatic stress disorder) Surgical History Gastric bypass status for obesity Social History Social History Alcohol intake: never Smoked in Last 30 Days: Yes Use of substances other than those prescribed or required for medical reasons: Yes Substance Use Type: Marijuana Advance Directives: No Advance Directives Information Provided: No Current occupational status: unemployed Current occupation: lt hand Physical Exam ED Vital Signs: Vital Signs - 24 hr 08/01/22 23:31 Temperature 98.5 F Pulse Rate 107 H Respiratory Rate 16 Blood Pressure 134/88 Pulse Oximetry 98 Oxygen Delivery Method Room Air BMI result Body Mass Index 43.3 vss Appearance: Alert.? Oriented X3.? No acute distress.? Head: Normocephalic, atraumatic, no step-offs or deformities Eyes: Pupils equal, round and reactive to light.? ENT: Pharynx normal.? Neck: Normal inspection.? Neck supple.? CVS: Normal heart rate and rhythm.? Pulses normal.? Respiratory: No respiratory distress.? Breath sounds normal.? Abdomen: Soft and nontender.? Skin: Skin warm and dry.? Normal skin color.? Normal skin turgor.? Extremities: No lower extremity edema.? No calf ttp. 5/5 strength to bilateral upper and lower extremities + pain with palpation to medial lateral aspect of right ankle with some overlying edema, no overlying skin changes, no cellulitis, erythema or warmth. 2+ dorsalis pedis, anterior tibialis and posterior tibialis pulses equal bilateral to lower extremities. Normal sensation distally. Normal capillary refill to bilateral lower extremity toes. No foot drop. Full range of motion to bilateral ankles however slightly uncomfortable on the right. Neuro: Oriented X 3.? No motor deficit.? No sensory deficit. CN 2-12 intact Course Reevaluation(s) Reevaluation #1: Patient given prednisone year old be sent home with prednisone and tramadol for pain. Educated patient on diagnosis and treatment plan, answered all question, patient verbalizes understanding. At this time patient will be discharged home, advised to return with new or worsening symptoms. Educated on worrisome signs and symptoms and when to return. At this time I feel comfortable discharge home. Time: 23:52 Medical Decision Making Medical Decision Making MDM Narrative: 37-year-old male presents with atraumatic right ankle pain since this morning. History of gout Physical exam significant for + pain with palpation to medial lateral aspect of right ankle with some overlying edema, no overlying skin changes, no cellulitis, erythema or warmth. 2+ dorsalis pedis, anterior tibialis and posterior tibialis pulses equal bilateral to lower extremities. Normal sensation distally. Normal capillary refill to bilateral lower extremity toes. No foot drop. Full range of motion to bilateral ankles however slightly uncomfortable on the right. Likely gout versus pseudogout versus inflammatory arthritis. Unlikely fractures, dislocations, arterial or venous occlusion, septic joint, threatened limb. No signs of cellulitis or necrotizing infection. Plan at this time prednisone and tramadol for pain. Differential Diagnosis Differential Diagnoses: The differential diagnosis associated with the presentation includes Likely gout versus pseudogout versus inflammatory arthritis. Unlikely frac tures, dislocations, arterial or venous occlusion, septic joint, threatened limb. No signs of cellulitis or necrotizing infection. Admission/Observation Consideration of admission/observation: Escalation of care including admission/observation considered Unlikely Tests considered The following testing was considered but not selected: Atraumatic right ankle pain no indication for imaging. History of gout seems like the previous episodes. Core Measures AMI core measures followed: Yes Measure exclusions: not indicated Discharge Plan Discharge Clinical Impression: Gout Patient Disposition: Home, Self-Care Instructions: Gout (ED) Additional Instructions: Take your medications as prescribed. If you were prescribed antibiotics today, it is important that you take your medication to their entirety, do not skip any doses, do not finish them early. Follow-up with your primary care provider this week. Return to the emergency department with new or worsening symptoms. Such as fevers, chills, chest pain, shortness of breath, nausea, vomiting, dizziness, headache, vision changes, lethargy In case of emergency call 911 A narcotic has been sent to your pharmacy please take this as prescribed. Do not take more than the prescribed dose. Narcotic medications can cause addiction. Please do not mix them with alcohol. Do not take them while driving or operating machinery. Do not take them with any other narcotics. Do not share them with friends or family. They can cause constipation. Take them only for severe pain. No more beef jerky! Prescriptions: New prednisone 20 mg tablet 40 mg PO DAILY 5 Days Qty: 10 0RF tramadol 50 mg tablet 50 mg PO BID PRN (Reason: pain) Qty: 6 0RF No Action amoxicillin-pot clavulanate [Augmentin] 875-125 mg tablet 1 tab PO Q12H 7 Days Qty: 14 0RF amoxicillin-pot clavulanate [Augmentin] 875-125 mg tablet 1 tab PO Q12H 7 Days Qty: 14 0RF amoxicillin-pot clavulanate [Augmentin] 875-125 mg tablet 1 tab PO BID 14 Days Qty: 28 0RF ibuprofen 800 mg tablet 800 mg PO Q8H PRN (Reason: pain) Qty: 14 0RF oxycodone 5 mg tablet 5 mg PO BID PRN (Reason: pain) Qty: 14 0RF acetaminophen [Tylenol Extra Strength] 500 mg tablet 1,000 mg PO QID PRN (Reason: fever or pain) Qty: 14 0RF prednisone 20 mg tablet 60 mg PO DAILY 4 Days Qty: 12 0RF acetaminophen 500 mg tablet 1,000 mg PO QID PRN (Reason: pain) Qty: 30 0RF oxycodone 5 mg tablet 5 mg PO Q6H PRN (Reason: pain) Qty: 14 0RF penicillin V potassium 500 mg tablet 500 mg PO BID Qty: 14 0RF ibuprofen 600 mg tablet 600 mg PO Q8H PRN (Reason: pain) Qty: 20 0RF hydrocodone-acetaminophen [[place]] 5-325 mg tablet 1 tab PO Q4-6H PRN (Reason: pain) Qty: 10 0RF Rx Instructions: for 3 days doxycycline monohydrate 100 mg capsule 100 mg PO BID 10 Days Qty: 20 0RF cephalexin [Keflex] 500 mg capsule 500 mg PO QID Qty: 28 0RF ibuprofen 600 mg tablet 600 mg PO Q8H PRN (Reason: pain) Qty: 20 0RF tramadol 50 mg tablet 50 mg PO BID PRN (Reason: pain) Qty: 7 0RF Rx Instructions: for 3 days amoxicillin-pot clavulanate [Augmentin] 875-125 mg tablet 1 tab PO BID Qty: 20 0RF tramadol 50 mg tablet 50 mg PO Q8H PRN (Reason: pain) Qty: 7 0RF ondansetron HCl [Zofran] 4 mg tablet 4 mg PO Q8H PRN (Reason: nausea and vomiting) Qty: 10 0RF prednisone 20 mg tablet 60 mg PO DAILY 5 Days Qty: 15 0RF oxycodone 5 mg tablet 5 mg PO Q8H PRN (Reason: pain) Qty: 5 0RF Rx Instructions: Gout flare tramadol 50 mg tablet 50 mg PO Q8H PRN (Reason: pain) Qty: 7 0RF amoxicillin-pot clavulanate [Augmentin] 875-125 mg tablet 1 tab PO BID 14 Days Qty: 28 0RF oxycodone-acetaminophen 5-325 mg tablet 1 tab PO Q6H PRN (Reason: pain) Qty: 10 0RF amoxicillin 500 mg tablet 500 mg PO TID Qty: 20 0RF ibuprofen 600 mg tablet 600 mg PO TID PRN (Reason: pain) Qty: 14 0RF acetaminophen [Tylenol Extra Strength] 500 mg tablet 1,000 mg PO QID PRN (Reason: fever or pain) Qty: 30 0RF tramadol 50 mg tablet 50 mg PO Q8H PRN (Reason: pain) Qty: 5 0RF Referrals: Physician,Unknown J [Primary Care Provider] - 2 days Stand Alone Forms: Work/School Release
== END 2022-08-01 23:58 | disposition home or self-care (01) ==
PROVIDERS: Emergency Provider Emergency Medicine
DX: M10.9 Gout, unspecified (principal); M25.571 Pain in right ankle and joints of right foot
CPT/HCPCS: 99283

== ENCOUNTER 2022-08-05 20:27 | Emergency (ER) | payer OTHER, SELFPAY ==
[2022-08-05 20:37] VITALS: BP 147/74; PULSE 107; RESP 18; TEMP 36.5; O2SAT 97; BMI 43.3
--- NOTE | 2022-08-05 20:38 | ED.GENADULT ---
HPI - General Adult General Chief complaint: General Medical Stated complaint: Right ankle pain revisit Related Data Previous Rx's Medication Instructions Recorded amoxicillin 875 mg-potassium 1 tab PO Q12H 7 days #14 tabs 12/03/19 clavulanate 125 mg tablet (Augmentin) amoxicillin 875 mg-potassium 1 tab PO Q12H 7 days #14 tabs 12/03/19 clavulanate 125 mg tablet (Augmentin) hydrocodone 5 mg-acetaminophen 325 1 tab PO Q4-6H PRN pain #10 tabs 01/10/20 mg tablet ([place]) ibuprofen 600 mg tablet 600 mg PO Q8H PRN pain #20 tabs 01/10/20 penicillin V potassium 500 mg 500 mg PO BID #14 tabs 01/10/20 tablet cephalexin 500 mg capsule (Keflex) 500 mg PO QID #28 caps 03/14/20 doxycycline monohydrate 100 mg 100 mg PO BID 10 days #20 caps 03/14/20 capsule ibuprofen 600 mg tablet 600 mg PO Q8H PRN pain #20 tabs 03/14/20 tramadol 50 mg tablet 50 mg PO BID PRN pain #7 tabs 03/14/20 acetaminophen 500 mg tablet 1,000 mg PO QID PRN fever or pain 05/21/20 (Tylenol Extra Strength) #14 tabs amoxicillin 875 mg-potassium 1 tab PO BID 14 days #28 tabs 05/21/20 clavulanate 125 mg tablet (Augmentin) ibuprofen 800 mg tablet 800 mg PO Q8H PRN pain #14 tabs 05/21/20 oxycodone 5 mg tablet 5 mg PO BID PRN pain #14 tabs 05/21/20 amoxicillin 875 mg-potassium 1 tab PO BID #20 tabs 07/15/20 clavulanate 125 mg tablet (Augmentin) ondansetron HCl 4 mg tablet 4 mg PO Q8H PRN nausea and 07/15/20 (Zofran) vomiting #10 tabs tramadol 50 mg tablet 50 mg PO Q8H PRN pain #7 tabs 07/15/20 acetaminophen 500 mg tablet 1,000 mg PO QID PRN pain #30 tabs 08/28/20 oxycodone 5 mg tablet 5 mg PO Q6H PRN pain #14 tabs 08/28/20 prednisone 20 mg tablet 60 mg PO DAILY 4 days #12 tabs 08/28/20 oxycodone 5 mg tablet 5 mg PO Q8H PRN pain #5 tabs 11/05/20 prednisone 20 mg tablet 60 mg PO DAILY 5 days #15 tabs 11/05/20 amoxicillin 875 mg-potassium 1 tab PO BID 14 days #28 tabs 12/20/20 clavulanate 125 mg tablet (Augmentin) oxycodone-acetaminophen 5 mg-325 1 tab PO Q6H PRN pain #10 tabs 12/21/20 mg tablet tramadol 50 mg tablet 50 mg PO Q8H PRN pain #7 tabs 07/10/21 amoxicillin 500 mg tablet 500 mg PO TID #20 tabs 02/18/22 ibuprofen 600 mg tablet 600 mg PO TID PRN pain #14 tabs 02/18/22 acetaminophen 500 mg tablet 1,000 mg PO QID PRN fever or pain 06/17/22 (Tylenol Extra Strength) #30 tabs tramadol 50 mg tablet 50 mg PO Q8H PRN pain #5 tabs 06/17/22 prednisone 20 mg tablet 40 mg PO DAILY 5 days #10 tabs 08/01/22 tramadol 50 mg tablet 50 mg PO BID PRN pain #6 tabs 08/01/22 Allergies Allergy/AdvReac Type Severity Reaction Status Date / Time No Known Allergies Allergy Verified 12/20/20 19:13 [No Known Allergies*] [facility] Past Medical History Medical History Anxiety Back pain Depression PTSD (post-traumatic stress disorder) Surgical History Gastric bypass status for obesity Social History Social History Alcohol intake: never Substance Use Type: Marijuana Advance Directives: No Advance Directives Information Provided: No Current occupational status: unemployed Current occupation: lt hand Physical Exam ED Vital Signs: BMI result Body Mass Index 43.3 Course Course Course Narrative: RME: 37 yold male presents to the ED for right ankle gout flareup. patient states no relief with steroids. no recent trauma to right lower extremity. patient states no fever or chills. Discharge Plan Discharge Clinical Impression: Ankle pain Patient Disposition: Elopement Prescriptions: No Action amoxicillin-pot clavulanate [Augmentin] 875-125 mg tablet 1 tab PO Q12H 7 Days Qty: 14 0RF amoxicillin-pot clavulanate [Augmentin] 875-125 mg tablet 1 tab PO Q12H 7 Days Qty: 14 0RF amoxicillin-pot clavulanate [Augmentin] 875-125 mg tablet 1 tab PO BID 14 Days Qty: 28 0RF ibuprofen 800 mg tablet 800 mg PO Q8H PRN (Reason: pain) Qty: 14 0RF oxycodone 5 mg tablet 5 mg PO BID PRN (Reason: pain) Qty: 14 0RF acetaminophen [Tylenol Extra Strength] 500 mg tablet 1,000 mg PO QID PRN (Reason: fever or pain) Qty: 14 0RF prednisone 20 mg tablet 60 mg PO DAILY 4 Days Qty: 12 0RF acetaminophen 500 mg tablet 1,000 mg PO QID PRN (Reason: pain) Qty: 30 0RF oxycodone 5 mg tablet 5 mg PO Q6H PRN (Reason: pain) Qty: 14 0RF penicillin V potassium 500 mg tablet 500 mg PO BID Qty: 14 0RF ibuprofen 600 mg tablet 600 mg PO Q8H PRN (Reason: pain) Qty: 20 0RF hydrocodone-acetaminophen [[place]] 5-325 mg tablet 1 tab PO Q4-6H PRN (Reason: pain) Qty: 10 0RF Rx Instructions: for 3 days doxycycline monohydrate 100 mg capsule 100 mg PO BID 10 Days Qty: 20 0RF cephalexin [Keflex] 500 mg capsule 500 mg PO QID Qty: 28 0RF ibuprofen 600 mg tablet 600 mg PO Q8H PRN (Reason: pain) Qty: 20 0RF tramadol 50 mg tablet 50 mg PO BID PRN (Reason: pain) Qty: 7 0RF Rx Instructions: for 3 days amoxicillin-pot clavulanate [Augmentin] 875-125 mg tablet 1 tab PO BID Qty: 20 0RF tramadol 50 mg tablet 50 mg PO Q8H PRN (Reason: pain) Qty: 7 0RF ondansetron HCl [Zofran] 4 mg tablet 4 mg PO Q8H PRN (Reason: nausea and vomiting) Qty: 10 0RF prednisone 20 mg tablet 60 mg PO DAILY 5 Days Qty: 15 0RF oxycodone 5 mg tablet 5 mg PO Q8H PRN (Reason: pain) Qty: 5 0RF Rx Instructions: Gout flare tramadol 50 mg tablet 50 mg PO Q8H PRN (Reason: pain) Qty: 7 0RF amoxicillin-pot clavulanate [Augmentin] 875-125 mg tablet 1 tab PO BID 14 Days Qty: 28 0RF oxycodone-acetaminophen 5-325 mg tablet 1 tab PO Q6H PRN (Reason: pain) Qty: 10 0RF amoxicillin 500 mg tablet 500 mg PO TID Qty: 20 0RF ibuprofen 600 mg tablet 600 mg PO TID PRN (Reason: pain) Qty: 14 0RF acetaminophen [Tylenol Extra Strength] 500 mg tablet 1,000 mg PO QID PRN (Reason: fever or pain) Qty: 30 0RF tramadol 50 mg tablet 50 mg PO Q8H PRN (Reason: pain) Qty: 5 0RF prednisone 20 mg tablet 40 mg PO DAILY 5 Days Qty: 10 0RF tramadol 50 mg tablet 50 mg PO BID PRN (Reason: pain) Qty: 6 0RF Discharge Date/Time: 08/05/22 23:42
== END 2022-08-05 23:42 | disposition left against medical advice (07) ==
LOC: HO.ED 23:38
PROVIDERS: Emergency Provider Emergency Medicine
DX: M25.571 Pain in right ankle and joints of right foot (principal)
CPT/HCPCS: 99281

== ENCOUNTER 2022-11-01 14:37 | Emergency (ER) | payer OTHER, SELFPAY ==
[2022-11-01 15:06] VITALS: BP 135/86; PULSE 109; RESP 18; TEMP 37.2; O2SAT 97; BMI 41.2
--- NOTE | 2022-11-01 15:09 | ED_ITS ---
HPI - Allergic Reaction General Chief complaint: General Medical Stated complaint: burning rash all over lightheaded Time Seen by Provider: 11/01/22 16:32 Source: patient, RN notes reviewed and old records reviewed Mode of arrival: ambulatory Limitations: no limitations History of Present Illness HPI narrative: 36-year-old male with past medical history of gastric bypass, PTSD, depression, back pain, anxiety, status post knee surgery is here today for complaining of burning rash since Saturday. Patient reports that he ate hamburger that was old in the refrigerator on Saturday and when he woke up Saturday morning he had burning, itchy rash all over his body. Patient did not take any medications. Did not follow up with his primary care provider. Patient states that not using any new soap. Have not changed any thing in his bowels that would cause him have this rash. Patient has not traveled anywhere. Patient denies any nausea or vomiting. Denies any abdominal pain or discomfort. Denies fever or chills. Patient denies trouble bleeding. No facial swelling no lip swelling, denies dysphagia, hoarseness MD complaint: allergic reaction Onset (ago): day(s) Exposure: unknown Symptoms: rash and itching Severity: moderate Related Data Previous Rx's Medication Instructions Recorded amoxicillin 875 mg-potassium 1 tab PO Q12H 7 days #14 tabs 12/03/19 clavulanate 125 mg tablet (Augmentin) amoxicillin 875 mg-potassium 1 tab PO Q12H 7 days #14 tabs 12/03/19 clavulanate 125 mg tablet (Augmentin) hydrocodone 5 mg-acetaminophen 325 1 tab PO Q4-6H PRN pain #10 tabs 01/10/20 mg tablet ([place]) ibuprofen 600 mg tablet 600 mg PO Q8H PRN pain #20 tabs 01/10/20 penicillin V potassium 500 mg 500 mg PO BID #14 tabs 01/10/20 tablet cephalexin 500 mg capsule (Keflex) 500 mg PO QID #28 caps 03/14/20 doxycycline monohydrate 100 mg 100 mg PO BID 10 days #20 caps 03/14/20 capsule ibuprofen 600 mg tablet 600 mg PO Q8H PRN pain #20 tabs 03/14/20 tramadol 50 mg tablet 50 mg PO BID PRN pain #7 tabs 03/14/20 acetaminophen 500 mg tablet 1,000 mg (2 x 500 mg) PO QID PRN 05/21/20 (Tylenol Extra Strength) fever or pain #14 tabs amoxicillin 875 mg-potassium 1 tab PO BID 14 days #28 tabs 05/21/20 clavulanate 125 mg tablet (Augmentin) ibuprofen 800 mg tablet 800 mg PO Q8H PRN pain #14 tabs 05/21/20 oxycodone 5 mg tablet 5 mg PO BID PRN pain #14 tabs 05/21/20 amoxicillin 875 mg-potassium 1 tab PO BID #20 tabs 07/15/20 clavulanate 125 mg tablet (Augmentin) ondansetron HCl 4 mg tablet 4 mg PO Q8H PRN nausea and 07/15/20 (Zofran) vomiting #10 tabs tramadol 50 mg tablet 50 mg PO Q8H PRN pain #7 tabs 07/15/20 acetaminophen 500 mg tablet 1,000 mg (2 x 500 mg) PO QID PRN 08/28/20 pain #30 tabs oxycodone 5 mg tablet 5 mg PO Q6H PRN pain #14 tabs 08/28/20 prednisone 20 mg tablet 60 mg (3 x 20 mg) PO DAILY 4 days 08/28/20 #12 tabs oxycodone 5 mg tablet 5 mg PO Q8H PRN pain #5 tabs 11/05/20 prednisone 20 mg tablet 60 mg (3 x 20 mg) PO DAILY 5 days 11/05/20 #15 tabs amoxicillin 875 mg-potassium 1 tab PO BID 14 days #28 tabs 12/20/20 clavulanate 125 mg tablet (Augmentin) oxycodone-acetaminophen 5 mg-325 1 tab PO Q6H PRN pain #10 tabs 12/21/20 mg tablet tramadol 50 mg tablet 50 mg PO Q8H PRN pain #7 tabs 07/10/21 amoxicillin 500 mg tablet 500 mg PO TID #20 tabs 02/18/22 ibuprofen 600 mg tablet 600 mg PO TID PRN pain #14 tabs 02/18/22 acetaminophen 500 mg tablet 1,000 mg (2 x 500 mg) PO QID PRN 06/17/22 (Tylenol Extra Strength) fever or pain #30 tabs tramadol 50 mg tablet 50 mg PO Q8H PRN pain #5 tabs 06/17/22 prednisone 20 mg tablet 40 mg (2 x 20 mg) PO DAILY 5 days 08/01/22 #10 tabs tramadol 50 mg tablet 50 mg PO BID PRN pain #6 tabs 08/01/22 diphenhydramine HCl 25 mg capsule 25 mg PO BEDTIME PRN allergic 11/01/22 (Benadryl) reaction #30 caps famotidine 20 mg tablet (Acid 20 mg PO DAILY #5 tabs 11/01/22 Controller) prednisone 20 mg tablet 40 mg (2 x 20 mg) PO DAILY #10 tabs 11/01/22 Allergies Allergy/AdvReac Type Severity Reaction Status Date / Time No Known Allergies Allergy Verified 12/20/20 19:13 [No Known Allergies*] Review of Systems 2 Review of Systems: Constitutional : No Weight loss, No Fever, No Chills, No Night Sweats, No Fatigue, No Malaise ENT/Mouth : No Hearing loss, No Ear Pain, No Nasal Congestion, No Sinus Pain, No Hoarseness, No sore throat, No Rhinorrhea, No Swallowing Difficulty Eyes: No Eye Pain, No Swelling, No Redness, No Foreign Body, No Discharge, No Vision Changes Musculoskeletal : No joint pain, No Myalgias, No Joint Swelling Skin : No Skin Lesions, rash Neuro : No Weakness, No Numbness, No Paresthesias, No Loss of Consciousness, No Dizziness, No Headache Yes all other systems are reviewed and are negative [facility] Past Medical History Medical History Anxiety Back pain Depression PTSD (post-traumatic stress disorder) Surgical History Gastric bypass status for obesity Social History Social History Alcohol intake: never Smoked in Last 30 Days: Yes Use of substances other than those prescribed or required for medical reasons: No Substance Use Type: Marijuana Advance Directives: No Advance Directives Information Provided: No Current occupational status: unemployed Current occupation: lt hand Physical Exam ED Vital Signs: Vital Signs - 24 hr 11/01/22 15:06 Temperature 99.0 F Pulse Rate 109 H Respiratory Rate 18 Blood Pressure 135/86 Pulse Oximetry 97 Oxygen Delivery Method Room Air BMI result Body Mass Index 41.2 Const General: no acute distress, alert and awake Nutritional Appearance: obese Orientation/consciousness: patient oriented x3 HENMT Head: Yes normal to inspection, Yes normocephalic and Yes atraumatic Face and sinus: Yes normal facial exam Mouth: Normal oral and palatal mucosa present Throat: Yes posterior oropharynx normal, Yes tonsils normal and Yes uvula midline Eyes General: appearance normal, both eyes and all related structures Neck Neck: Yes normal visual inspection, Yes full ROM and Yes trachea midline Thyroid: Thyroid normal Resp Effort & Inspection: normal respiratory effort, able to speak in complete sentences, no tracheal deviation and symmetric chest movement Auscultation: clear to auscultation bilaterally Cardio Rate: regular rate Heart sounds: S1 normal heart sound present and S2 normal heart sound present GI Inspection: Yes normal to inspection, No distended and Yes obesity Palpation (GI): Soft to palpation, not firm, nontender and No hepatosplenomegaly present Auscultation: normal bowel sounds General: Yes no CVA tenderness Back/Spine/Pelvis Back: no CVA tenderness Skin General skin exam: elasticity normal, turgor normal and dry skin Rashes: rashes noted (Upper and lower extremities, back and chest) Neuro General: patient oriented x3 Extrem Other: rash General: Yes full ROM, Yes capillary refill normal, Yes no joint enlargement and Yes no clubbing, cyanosis or edema Psych Appearance: grossly normal Mental Status: mental status grossly normal Speech and movement: Normal speech and movement present Course Course Course Narrative: RME- 15pm 37yoM presenting to the ER with complaints of itchy burning sensation rash that started on Saturday. Reports that he had hamburger and his Fridge for 2 days and then he ended up eating at on Saturday and he is unsure if it is related to this. Reports he has never had this rash in the past. He has not been sexually active does not believe he has an STD. Denies any rashes or lesions to the penile area. Denies any other new substances. Denies any trouble swallowing or breathing or any other symptoms complaints or concerns at this time. He reports that he lives alone and has not been around anyone in his apartment no one has a similar rash. Plan: Basic labs ordered at this time including RPR for possible syphilis patient will be sent back to the waiting room to be evaluated in EM. 36-year-old male with past medical history of gastric bypass, PTSD, depression, back pain, anxiety, status post knee surgery is here today for complaining of burning rash since Saturday. Patient reports that he ate hamburger that was old in the refrigerator on Saturday and when he woke up Saturday morning he had burning, itchy rash all over his body. Patient did not take any medications. Did not follow up with his primary care provider. Patient states that not using any new soap. Have not changed any thing in his bowels that would cause him have this rash. Patient has not traveled anywhere. Patient denies any nausea or vomiting. Denies any abdominal pain or discomfort. Denies fever or chills. Reevaluation(s) Reevaluation #1: Rash improved. Patient continues to have no respiratory symptoms. Feeling well. Patient denies itching or burning. Will send him home on Pepcid, prednisone and Benadryl Medications Administered Discontinued Medications Generic Name Dose Route Start Last Admin Trade Name Evan PRN Reason Stop Dose Admin Diphenhydramine HCl 50 mg 11/01/22 16:44 11/01/22 17:03 Diphenhydramine Hcl 50 Mg/Ml Vial IVPUSH 11/01/22 16:45 50 mg ONCE ONE Administration Famotidine 20 mg 11/01/22 16:44 11/01/22 17:03 Famotidine/Pf 20 Mg/2 Ml Vial IVPUSH 11/01/22 16:45 20 mg ONCE ONE Administration Sodium Chloride 1,000 mls @ 999 mls/hr 11/01/22 16:55 11/01/22 19:12 Ns IV 11/01/22 17:55 Infused .Q1H1M STA Infusion Methylprednisolone Sodium Succinate 125 mg 11/01/22 16:44 11/01/22 17:03 Methylprednisolone Sod Succ 125 Mg/2 Ml Vial IVPUSH 11/01/22 16:45 125 mg ONCE ONE Administration Medical Decision Making Medical Decision Making [facility] Narrative: 36-year-old male with past medical history of gastric bypass, PTSD, depression, back pain, anxiety, status post knee surgery is here today for complaining of burning rash since Saturday. Patient reports that he ate hamburger that was old in the refrigerator on Saturday and when he woke up Saturday morning he had burning, itchy rash all over his body. Patient did not take any medications. Did not follow up with his primary care provider. Patient states that not using any new soap. Have not changed any thing in his bowels that would cause him have this rash. Patient has not traveled anywhere. Patient denies any nausea or vomiting. Denies any abdominal pain or discomfort. Denies fever or chills. lab work reviewed and all negative. No leukocytosis. Syphilis test pending. Will start IV fluids, give Solu-Medrol, Pepcid, Benadryl Rash subsided patient will be sent home on Pepcid, Benadryl and prednisone for the next 5 days. Patient was instructed to return to emergency department if he will have worsening symptoms Differential Diagnosis Differential Diagnoses: The differential diagnosis associated with the presentation includes Urticaria, pruritus, flushing, Angioedema, dyspnea Lab Data 11/01/22 15:53 11/01/22 15:53 Labs: Lab Results 11/01/22 Range/Units 15:53 WBC 6.1 (4.8-10.8) X10*3/uL RBC 4.59 L (4.60-5.80) X10*6/uL Hgb 14.5 (14.0-18.0) g/dl Hct 42.8 (42.0-52.0) % MCV 93.2 (80.0-98.0) fL MCH 31.6 (27.0-33.0) pg MCHC 33.9 (31.0-36.0) g/dl RDW 13.2 (11.0-16.0) % Plt Count 238 (160-400) X10*3/uL MPV 9.4 (9.4-12.4) fL Immature Gran % (Auto) 0.3 (0.0-0.4) % Neut % (Auto) 59.6 (45-73) % Lymph % (Auto) 24.3 (20-40) % [place] % (Auto) 14.0 H (2-11) % Eos % (Auto) 1.3 (0-4) % Baso % (Auto) 0.5 (0-2) % Lymph # (Auto) 1.5 (1.2-4.9) X10*3/uL [place] # (Auto) 0.9 (0.1-1.2) X10*3/uL Eos # (Auto) 0.1 (0.0-0.4) X10*3/uL Baso # (Auto) 0.0 (0.0-0.2) X10*3/uL Abs Immat Gran (auto) 0.02 (0.00-0.03) X10*3/uL Absolute Neuts (auto) 3.6 (2.0-8.3) x10*3/uL Absolute Nucleated RBC 0.000 (0.0-0.012) X10*3/uL Nucleated RBC % (auto) 0.0 (0.0-0.2) /100WBC Sodium 141 (135-145) mmol/L Potassium 4.2 (3.3-5.1) mmol/L Chloride 106 (96-108) mmol/L Carbon Dioxide 25 (22-29) mmol/L Anion Gap 14 (12-20) BUN 11 (9-16) mg/dL Creatinine 1.10 (0.5-1.4) mg/dL Estim Creat Clear Calc 118.4 Estimated GFR > 60 Random Glucose 86 (60-115) mg/dL Calcium 9.7 (8.4-10.2) mg/dL Magnesium 2.2 (1.6-2.6) mg/dL Total Bilirubin 0.3 (0.0-1.0) mg/dL AST 33 (5-37) U/L ALT 31 (0-40) U/L Alkaline Phosphatase 120 H (39-117) U/L Total Protein 8.6 H (6.5-8.0) g/dL Albumin 4.4 (3.5-5.0) g/dL T.pallidum Ab (EIA) Nonreactive (Nonreactive) Discharge Plan Discharge Clinical Impression: Rash, Allergic reaction Patient Disposition: Home, Self-Care Instructions: General Allergic Reaction (ED) Additional Instructions: You were seen here today for rash. You were given prednisone, Pepcid and Benadryl. You will be sent home with the same to take it for 5 days total. Return to emergency department if your symptoms will get worse or if you develop any additional concerning symptoms Prescriptions: New prednisone 20 mg tablet 40 mg PO DAILY Qty: 10 0RF famotidine [Acid Controller] 20 mg tablet 20 mg PO DAILY Qty: 5 0RF diphenhydramine HCl [Benadryl] 25 mg capsule 25 mg PO BEDTIME PRN (Reason: allergic reaction) Qty: 30 0RF No Action amoxicillin-pot clavulanate [Augmentin] 875-125 mg tablet 1 tab PO Q12H 7 Days Qty: 14 0RF amoxicillin-pot clavulanate [Augmentin] 875-125 mg tablet 1 tab PO Q12H 7 Days Qty: 14 0RF amoxicillin-pot clavulanate [Augmentin] 875-125 mg tablet 1 tab PO BID 14 Days Qty: 28 0RF ibuprofen 800 mg tablet 800 mg PO Q8H PRN (Reason: pain) Qty: 14 0RF oxycodone 5 mg tablet 5 mg PO BID PRN (Reason: pain) Qty: 14 0RF acetaminophen [Tylenol Extra Strength] 500 mg tablet 1,000 mg PO QID PRN (Reason: fever or pain) Qty: 14 0RF prednisone 20 mg tablet 60 mg PO DAILY 4 Days Qty: 12 0RF acetaminophen 500 mg tablet 1,000 mg PO QID PRN (Reason: pain) Qty: 30 0RF oxycodone 5 mg tablet 5 mg PO Q6H PRN (Reason: pain) Qty: 14 0RF penicillin V potassium 500 mg tablet 500 mg PO BID Qty: 14 0RF ibuprofen 600 mg tablet 600 mg PO Q8H PRN (Reason: pain) Qty: 20 0RF hydrocodone-acetaminophen [[place]] 5-325 mg tablet 1 tab PO Q4-6H PRN (Reason: pain) Qty: 10 0RF Rx Instructions: for 3 days doxycycline monohydrate 100 mg capsule 100 mg PO BID 10 Days Qty: 20 0RF cephalexin [Keflex] 500 mg capsule 500 mg PO QID Qty: 28 0RF ibuprofen 600 mg tablet 600 mg PO Q8H PRN (Reason: pain) Qty: 20 0RF tramadol 50 mg tablet 50 mg PO BID PRN (Reason: pain) Qty: 7 0RF Rx Instructions: for 3 days amoxicillin-pot clavulanate [Augmentin] 875-125 mg tablet 1 tab PO BID Qty: 20 0RF tramadol 50 mg tablet 50 mg PO Q8H PRN (Reason: pain) Qty: 7 0RF ondansetron HCl [Zofran] 4 mg tablet 4 mg PO Q8H PRN (Reason: nausea and vomiting) Qty: 10 0RF prednisone 20 mg tablet 60 mg PO DAILY 5 Days Qty: 15 0RF oxycodone 5 mg tablet 5 mg PO Q8H PRN (Reason: pain) Qty: 5 0RF Rx Instructions: Gout flare tramadol 50 mg tablet 50 mg PO Q8H PRN (Reason: pain) Qty: 7 0RF amoxicillin-pot clavulanate [Augmentin] 875-125 mg tablet 1 tab PO BID 14 Days Qty: 28 0RF oxycodone-acetaminophen 5-325 mg tablet 1 tab PO Q6H PRN (Reason: pain) Qty: 10 0RF amoxicillin 500 mg tablet 500 mg PO TID Qty: 20 0RF ibuprofen 600 mg tablet 600 mg PO TID PRN (Reason: pain) Qty: 14 0RF acetaminophen [Tylenol Extra Strength] 500 mg tablet 1,000 mg PO QID PRN (Reason: fever or pain) Qty: 30 0RF tramadol 50 mg tablet 50 mg PO Q8H PRN (Reason: pain) Qty: 5 0RF prednisone 20 mg tablet 40 mg PO DAILY 5 Days Qty: 10 0RF tramadol 50 mg tablet 50 mg PO BID PRN (Reason: pain) Qty: 6 0RF Interventions: ED Discharge Assessment Last Done: 11/01/22 19:27 Discharge Date/Time: 11/01/22 19:27
[2022-11-01 15:59] LABS: MANUAL DIFF FLAG NO
[2022-11-01 16:09] LABS: Basophils Percent Auto 0.5 % (0-2); Eosinophils Absolute Auto 0.1 X10*3/uL (0.0-0.4); Eosinophils Percent Auto 1.3 % (0-4); Hematocrit 42.8 % (42.0-52.0); Hemoglobin 14.5 g/dl (14.0-18.0); Imm Gran Abs Auto 0.02 X10*3/uL (0.00-0.03); Imm Gran Pct Auto 0.3 % (0.0-0.4); Lymphocytes Absolute Auto 1.5 X10*3/uL (1.2-4.9); Lymphocytes Percent Auto 24.3 % (20-40); Mean Corpuscular HGB Conc 33.9 g/dl (31.0-36.0); Mean Corpuscular Hemoglobin 31.6 pg (27.0-33.0); Mean Corpuscular Volume 93.2 fL (80.0-98.0); Mean Platelet Volume 9.4 fL (9.4-12.4); Monocytes Absolute Auto 0.9 X10*3/uL (0.1-1.2); Neutrophils Absolute Auto 3.6 x10*3/uL (2.0-8.3); Neutrophils Percent Auto 59.6 % (45-73); Platelet Count 238 X10*3/uL (160-400); Red Blood Count 4.59 X10*6/uL (4.60-5.80); Red Cell Distribution Width 13.2 % (11.0-16.0); White Blood Count 6.1 X10*3/uL (4.8-10.8)
[2022-11-01 16:14] LABS: Alanine Aminotransferase 31 U/L (0-40); Albumin Level 4.4 g/dL (3.5-5.0); Alkaline Phosphatase 120 U/L (39-117); Anion Gap 14 (12-20); Aspartate Amino Transferase 33 U/L (5-37); Bilirubin Total 0.3 mg/dL (0.0-1.0); Blood Urea Nitrogen 11 mg/dL (9-16); Calcium 9.7 mg/dL (8.4-10.2); Carbon Dioxide 25 mmol/L (22-29); Chloride 106 mmol/L (96-108); Creatinine Clr Calc Pharmacy 118.4; Estimated Glomerular Filt Rate > 60; Glucose Random 86 mg/dL (60-115); Magnesium 2.2 mg/dL (1.6-2.6); Potassium 4.2 mmol/L (3.3-5.1); Sodium 141 mmol/L (135-145); Total Protein 8.6 g/dL (6.5-8.0)
[2022-11-01] MEDS: diphenhydrAMINE HCL 50 MG/ML VIAL IVPUSH (17:03)
[2022-11-01] MEDS: 0.9 % Sodium Chloride 1,000 ML 999 ML IV (17:03)
[2022-11-01] MEDS: Famotidine/PF 20 MG/2 ML VIAL IVPUSH (17:03)
[2022-11-01] MEDS: methylPREDNISolone Sod Succ 125 MG/2 ML VIAL IVPUSH (17:03)
--- NOTE | 2022-11-01 17:13 | PC.NURSE ---
iv established, medicated per the MAR.
[2022-11-01 19:21] VITALS: BP 129/80; PULSE 95; RESP 18; O2SAT 98
[2022-11-02 04:31] LABS: Syphilis Screen Nonreactive (Nonreactive)
== END 2022-11-01 19:27 | disposition home or self-care (01) ==
PROVIDERS: Physician Assistant Medical; Emergency Provider Emergency Medicine
DX: L50.0 Allergic urticaria (principal); Z79.899 Other long term (current) drug therapy
CPT/HCPCS: 36415; 80053; 83735; 85025; 86780; 96361; 96374; 96375; 99284; J1200; J2930

== ENCOUNTER 2022-11-20 18:05 | Emergency (ER) | payer OTHER, SELFPAY ==
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
[2022-11-20 18:32] VITALS: BP 141/83; PULSE 80; RESP 18; TEMP 36.7; O2SAT 99; BMI 41.0
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
[2022-11-20] MEDS: Ketorolac Tromethamine 60 MG/2 ML VIAL IM (22:17)
== END 2022-11-20 23:02 | disposition home or self-care (01) ==
PROVIDERS: Emergency Provider Emergency Medicine Emergency Medical Services
DX: S83.92XA Sprain of unspecified site of left knee, initial encounter (principal); V43.62XA Car passenger injured in collision with other type car in traffic accident, initial encounter; Y93.9 Activity, unspecified; Y92.9 Unspecified place or not applicable; Y99.9 Unspecified external cause status; Z79.899 Other long term (current) drug therapy
CPT/HCPCS: 73564; 96372; 99283; 99284; J1885

== ENCOUNTER 2023-08-03 22:51 | Emergency (ER) | payer OTHER, SELFPAY ==
[2023-08-03 23:10] VITALS: BP 126/72; PULSE 85; RESP 20; TEMP 37.1; O2SAT 98; BMI 42.1
--- NOTE | 2023-08-04 00:36 | ED_ITS ---
HPI - General Adult General Chief complaint: Dental/Oral Stated complaint: tooth pain broken Time Seen by Provider: 08/04/23 00:19 Source: patient, RN notes reviewed and old records reviewed Mode of arrival: ambulatory Limitations: no limitations History of Present Illness ED Provider: Chencho HPI narrative: 38-year-old male presents for evaluation of dental pain. Patient reports that about an hour prior to arrival he was eating chicken and I broke a tooth. ? Patient is unsure if he bit into the chicken bone or his fork He reports 10/10 pain to the area of the dental fracture Related Data Previous Rx's ?Medication ?Instructions ?Recorded amoxicillin 875 mg-potassium 1 tab PO Q12H 7 days #14 tabs 12/03/19 clavulanate 125 mg tablet (Augmentin) amoxicillin 875 mg-potassium 1 tab PO Q12H 7 days #14 tabs 12/03/19 clavulanate 125 mg tablet (Augmentin) hydrocodone 5 mg-acetaminophen 325 1 tab PO Q4-6H PRN pain #10 tabs 01/09/20 mg tablet ([place]) ibuprofen 600 mg tablet 600 mg PO Q8H PRN pain #20 tabs 01/10/20 penicillin V potassium 500 mg 500 mg PO BID #14 tabs 01/10/20 tablet cephalexin 500 mg capsule (Keflex) 500 mg PO QID #28 caps 03/14/20 doxycycline monohydrate 100 mg 100 mg PO BID 10 days #20 caps 03/14/20 capsule ibuprofen 600 mg tablet 600 mg PO Q8H PRN pain #20 tabs 03/14/20 tramadol 50 mg tablet 50 mg PO BID PRN pain #7 tabs 03/14/20 acetaminophen 500 mg tablet 1,000 mg (2 x 500 mg) PO QID PRN 05/21/20 (Tylenol Extra Strength) fever or pain #14 tabs amoxicillin 875 mg-potassium 1 tab PO BID 14 days #28 tabs 05/21/20 clavulanate 125 mg tablet (Augmentin) ibuprofen 800 mg tablet 800 mg PO Q8H PRN pain #14 tabs 05/21/20 oxycodone 5 mg tablet 5 mg PO BID PRN pain #14 tabs 05/21/20 amoxicillin 875 mg-potassium 1 tab PO BID #20 tabs 07/15/20 clavulanate 125 mg tablet (Augmentin) ondansetron HCl 4 mg tablet 4 mg PO Q8H PRN nausea and 07/15/20 (Zofran) vomiting #10 tabs tramadol 50 mg tablet 50 mg PO Q8H PRN pain #7 tabs 07/15/20 acetaminophen 500 mg tablet 1,000 mg (2 x 500 mg) PO QID PRN 08/28/20 pain #30 tabs oxycodone 5 mg tablet 5 mg PO Q6H PRN pain #14 tabs 08/28/20 prednisone 20 mg tablet 60 mg (3 x 20 mg) PO DAILY 4 days 08/28/20 #12 tabs oxycodone 5 mg tablet 5 mg PO Q8H PRN pain #5 tabs 11/05/20 prednisone 20 mg tablet 60 mg (3 x 20 mg) PO DAILY 5 days 11/05/20 #15 tabs amoxicillin 875 mg-potassium 1 tab PO BID 14 days #28 tabs 12/20/20 clavulanate 125 mg tablet (Augmentin) oxycodone-acetaminophen 5 mg-325 1 tab PO Q6H PRN pain #10 tabs 12/21/20 mg tablet tramadol 50 mg tablet 50 mg PO Q8H PRN pain #7 tabs 07/10/21 amoxicillin 500 mg tablet 500 mg PO TID #20 tabs 02/18/22 ibuprofen 600 mg tablet 600 mg PO TID PRN pain #14 tabs 02/18/22 acetaminophen 500 mg tablet 1,000 mg (2 x 500 mg) PO QID PRN 06/17/22 (Tylenol Extra Strength) fever or pain #30 tabs tramadol 50 mg tablet 50 mg PO Q8H PRN pain #5 tabs 06/17/22 prednisone 20 mg tablet 40 mg (2 x 20 mg) PO DAILY 5 days 08/01/22 #10 tabs tramadol 50 mg tablet 50 mg PO BID PRN pain #6 tabs 08/01/22 diphenhydramine HCl 25 mg capsule 25 mg PO BEDTIME PRN allergic 11/01/22 (Benadryl) reaction #30 caps famotidine 20 mg tablet (Acid 20 mg PO DAILY #5 tabs 11/01/22 Controller) prednisone 20 mg tablet 40 mg (2 x 20 mg) PO DAILY #10 tabs 09/07/23 acetaminophen 500 mg tablet 1,000 mg (2 x 500 mg) PO Q6H PRN 11/20/22 (Acetaminophen Extra Strength) pain #30 tabs amoxicillin 500 mg tablet 500 mg PO TID #21 tabs 08/04/23 oxycodone 5 mg tablet 5 mg PO Q6H PRN severe pain (scale 08/04/23 score 7-10) #12 tabs Allergies Allergy/AdvReac Type Severity Reaction Status Date / Time No Known Allergies Allergy Verified 08/03/23 23:14 [No Known Allergies*] Review of Systems Constitutional: Constitutional: Denies body ache(s), Denies chills and Denies fever(s) ENT: Reports facial pain and Reports mouth pain PMFSH Past Medical History Medical History Depression Anxiety PTSD (post-traumatic stress disorder) Back pain Surgical History Gastric bypass status for obesity Social History Social History Alcohol intake: never Smoked in Last 30 Days: No Use of substances other than those prescribed or required for medical reasons: No Substance Use Type: Marijuana Advance Directives: No Advance Directives Information Provided: No Current occupational status: unemployed Current occupation: lt hand Physical Exam ED Vital Signs: Vital Signs - 24 hr 08/03/23 23:10 08/04/23 00:56 Temperature 98.8 F 98.8 F Pulse Rate 85 85 Respiratory Rate 20 20 Blood Pressure 126/72 126/72 Pulse Oximetry 98 98 Oxygen Delivery Method Room Air Room Air BMI result Body Mass Index 42.1 Const General: healthy appearing, comfortable, no acute distress, alert and awake Nutritional Appearance: well nourished Orientation/consciousness: patient oriented x3 HENMT Other: Dental fracture to tooth 10. With dental root exposed. No evidence of dental abscess. Head: Yes normocephalic and Yes atraumatic Eyes Eyelids: Yes eyelids normal Conjunctivae: conjunctivae normal Sclerae: sclerae normal Corneas: corneas normal Pupils: Equal, round and reactive pupils present EOM: EOMs intact bilaterally Resp Effort & Inspection: normal respiratory effort, able to speak in complete sentences and not labored Skin General skin exam: elasticity normal Neuro General: patient oriented x3 Cranial nerves: Yes Equal, round and reactive pupils present and Yes Bilaterally intact EOM present Cognition (Neuro): normal cognition Extrem Other: Moving all extremities well without any obvious deformities Medications Administered Discontinued Medications Generic Name Dose Route Start Last Admin Trade Name Freq PRN Reason Stop Dose Admin Amoxicillin 500 mg 08/04/23 00:36 08/04/23 00:52 Amoxicillin 500 Mg Capsule PO 08/04/23 00:37 500 mg ONCE ONE Administration Oxycodone HCl 5 mg 08/04/23 00:37 08/04/23 00:52 Oxycodone Hcl Immed Release 5 Mg Tablet PO 08/04/23 00:38 5 mg ONCE ONE Administration Medical Decision Making Medical Decision Making MDM Narrative: Patient has acute dental fracture with dental root exposed. He was informed that he will have to follow-up with his dentist as soon as possible. Will treat with analgesia and antibiotics to prevent infection this time. Differential Diagnosis Differential Diagnoses: The differential diagnosis associated with the presentation includes Dental trauma Dental fracture Dental caries Facial pain Dental abscess Discharge Plan Discharge Clinical Impression: Fracture of tooth Patient Disposition: Home, Self-Care Instructions: Acute Dental Trauma (ED) Additional Instructions: Take amoxicillin 3 times daily for 1 week. Use ibuprofen/Tylenol for pain. You may use [id number] Orajel Take oxycodone for severe or breakthrough pain. This may make you sleepy, did not drink alcohol or drive after taking it Follow-up with your dentist as soon as possible Prescriptions: New amoxicillin 500 mg tablet 500 mg PO TID Qty: 21 0RF oxycodone 5 mg tablet 5 mg PO Q6H PRN (Reason: severe pain (scale score 7-10)) Qty: 12 0RF Rx Instructions: Partial Fill upon patient request. No Action amoxicillin-pot clavulanate [Augmentin] 875-125 mg tablet 1 tab PO Q12H 7 Days Qty: 14 0RF amoxicillin-pot clavulanate [Augmentin] 875-125 mg tablet 1 tab PO Q12H 7 Days Qty: 14 0RF amoxicillin-pot clavulanate [Augmentin] 875-125 mg tablet 1 tab PO BID 14 Days Qty: 28 0RF ibuprofen 800 mg tablet 800 mg PO Q8H PRN (Reason: pain) Qty: 14 0RF oxycodone 5 mg tablet 5 mg PO BID PRN (Reason: pain) Qty: 14 0RF acetaminophen [Tylenol Extra Strength] 500 mg tablet 1,000 mg PO QID PRN (Reason: fever or pain) Qty: 14 0RF prednisone 20 mg tablet 60 mg PO DAILY 4 Days Qty: 12 0RF acetaminophen 500 mg tablet 1,000 mg PO QID PRN (Reason: pain) Qty: 30 0RF oxycodone 5 mg tablet 5 mg PO Q6H PRN (Reason: pain) Qty: 14 0RF penicillin V potassium 500 mg tablet 500 mg PO BID Qty: 14 0RF ibuprofen 600 mg tablet 600 mg PO Q8H PRN (Reason: pain) Qty: 20 0RF hydrocodone-acetaminophen [[place]] 5-325 mg tablet 1 tab PO Q4-6H PRN (Reason: pain) Qty: 10 0RF Rx Instructions: for 3 days doxycycline monohydrate 100 mg capsule 100 mg PO BID 10 Days Qty: 20 0RF cephalexin [Keflex] 500 mg capsule 500 mg PO QID Qty: 28 0RF ibuprofen 600 mg tablet 600 mg PO Q8H PRN (Reason: pain) Qty: 20 0RF tramadol 50 mg tablet 50 mg PO BID PRN (Reason: pain) Qty: 7 0RF Rx Instructions: for 3 days amoxicillin-pot clavulanate [Augmentin] 875-125 mg tablet 1 tab PO BID Qty: 20 0RF tramadol 50 mg tablet 50 mg PO Q8H PRN (Reason: pain) Qty: 7 0RF ondansetron HCl [Zofran] 4 mg tablet 4 mg PO Q8H PRN (Reason: nausea and vomiting) Qty: 10 0RF prednisone 20 mg tablet 60 mg PO DAILY 5 Days Qty: 15 0RF oxycodone 5 mg tablet 5 mg PO Q8H PRN (Reason: pain) Qty: 5 0RF Rx Instructions: Gout flare tramadol 50 mg tablet 50 mg PO Q8H PRN (Reason: pain) Qty: 7 0RF amoxicillin-pot clavulanate [Augmentin] 875-125 mg tablet 1 tab PO BID 14 Days Qty: 28 0RF oxycodone-acetaminophen 5-325 mg tablet 1 tab PO Q6H PRN (Reason: pain) Qty: 10 0RF amoxicillin 500 mg tablet 500 mg PO TID Qty: 20 0RF ibuprofen 600 mg tablet 600 mg PO TID PRN (Reason: pain) Qty: 14 0RF acetaminophen [Tylenol Extra Strength] 500 mg tablet 1,000 mg PO QID PRN (Reason: fever or pain) Qty: 30 0RF tramadol 50 mg tablet 50 mg PO Q8H PRN (Reason: pain) Qty: 5 0RF prednisone 20 mg tablet 40 mg PO DAILY 5 Days Qty: 10 0RF tramadol 50 mg tablet 50 mg PO BID PRN (Reason: pain) Qty: 6 0RF prednisone 20 mg tablet 40 mg PO DAILY Qty: 10 0RF famotidine [Acid Controller] 20 mg tablet 20 mg PO DAILY Qty: 5 0RF diphenhydramine HCl [Benadryl] 25 mg capsule 25 mg PO BEDTIME PRN (Reason: allergic reaction) Qty: 30 0RF acetaminophen [Acetaminophen Extra Strength] 500 mg tablet 1,000 mg PO Q6H PRN (Reason: pain) Qty: 30 0RF Interventions: ED Discharge Assessment Last Done: 08/04/23 00:56 Print Language: Malay
[2023-08-04] MEDS: Amoxicillin 500 MG CAPSULE PO (00:52)
[2023-08-04] MEDS: oxyCODONE HCl Immed Release 5 MG TABLET PO (00:52)
[2023-08-04 00:56] VITALS: BP 126/72; PULSE 85; RESP 20; TEMP 37.1; O2SAT 98
== END 2023-08-04 01:16 | disposition home or self-care (01) ==
PROVIDERS: Emergency Provider Student in an Organized Health Care Education/Training Program
DX: S02.5XXA Fracture of tooth (traumatic), initial encounter for closed fracture (principal); X58.XXXA Exposure to other specified factors, initial encounter; Y93.89 Activity, other specified; Y92.9 Unspecified place or not applicable; Y99.9 Unspecified external cause status
CPT/HCPCS: 99283; 99284

== ENCOUNTER 2023-12-20 12:13 | Emergency (ER) | payer OTHER, SELFPAY ==
--- NOTE | 2023-12-20 12:35 | ED.GENADULT ---
HPI - General Adult General Chief complaint: Dental/Oral Stated complaint: mouth pain/bleeding Time Seen by Provider: 12/20/23 15:22 History of Present Illness HPI narrative: Patient complains of pain after multiple teeth were extracted this morning, he is taken no analgesics and has no prescriptions for pain meds from his doctor, it is bleeding mildly but no heavy bleeding or hemorrhage Related Data Previous Rx's ?Medication ?Instructions ?Recorded amoxicillin 875 mg-potassium 1 tab PO Q12H 7 days #14 tabs 12/03/19 clavulanate 125 mg tablet (Augmentin) amoxicillin 875 mg-potassium 1 tab PO Q12H 7 days #14 tabs 12/03/19 clavulanate 125 mg tablet (Augmentin) hydrocodone 5 mg-acetaminophen 325 1 tab PO Q4-6H PRN pain #10 tabs 01/10/20 mg tablet ([place]) ibuprofen 600 mg tablet 600 mg PO Q8H PRN pain #20 tabs 01/10/20 penicillin V potassium 500 mg 500 mg PO BID #14 tabs 01/10/20 tablet cephalexin 500 mg capsule (Keflex) 500 mg PO QID #28 caps 03/14/20 doxycycline monohydrate 100 mg 100 mg PO BID 10 days #20 caps 03/14/20 capsule ibuprofen 600 mg tablet 600 mg PO Q8H PRN pain #20 tabs 03/14/20 tramadol 50 mg tablet 50 mg PO BID PRN pain #7 tabs 03/14/20 acetaminophen 500 mg tablet 1,000 mg (2 x 500 mg) PO QID PRN 05/21/20 (Tylenol Extra Strength) fever or pain #14 tabs amoxicillin 875 mg-potassium 1 tab PO BID 14 days #28 tabs 05/21/20 clavulanate 125 mg tablet (Augmentin) ibuprofen 800 mg tablet 800 mg PO Q8H PRN pain #14 tabs 05/21/20 oxycodone 5 mg tablet 5 mg PO BID PRN pain #14 tabs 05/21/20 amoxicillin 875 mg-potassium 1 tab PO BID #20 tabs 07/15/20 clavulanate 125 mg tablet (Augmentin) ondansetron HCl 4 mg tablet 4 mg PO Q8H PRN nausea and 07/15/20 (Zofran) vomiting #10 tabs tramadol 50 mg tablet 50 mg PO Q8H PRN pain #7 tabs 07/15/20 acetaminophen 500 mg tablet 1,000 mg (2 x 500 mg) PO QID PRN 08/28/20 pain #30 tabs oxycodone 5 mg tablet 5 mg PO Q6H PRN pain #14 tabs 08/28/20 prednisone 20 mg tablet 60 mg (3 x 20 mg) PO DAILY 4 days 08/28/20 #12 tabs oxycodone 5 mg tablet 5 mg PO Q8H PRN pain #5 tabs 11/05/20 prednisone 20 mg tablet 60 mg (3 x 20 mg) PO DAILY 5 days 11/05/20 #15 tabs amoxicillin 875 mg-potassium 1 tab PO BID 14 days #28 tabs 12/20/20 clavulanate 125 mg tablet (Augmentin) oxycodone-acetaminophen 5 mg-325 1 tab PO Q6H PRN pain #10 tabs 12/21/20 mg tablet tramadol 50 mg tablet 50 mg PO Q8H PRN pain #7 tabs 07/10/21 amoxicillin 500 mg tablet 500 mg PO TID #20 tabs 02/18/22 ibuprofen 600 mg tablet 600 mg PO TID PRN pain #14 tabs 02/18/22 acetaminophen 500 mg tablet 1,000 mg (2 x 500 mg) PO QID PRN 06/17/22 (Tylenol Extra Strength) fever or pain #30 tabs tramadol 50 mg tablet 50 mg PO Q8H PRN pain #5 tabs 06/17/22 prednisone 20 mg tablet 40 mg (2 x 20 mg) PO DAILY 5 days 08/01/22 #10 tabs tramadol 50 mg tablet 50 mg PO BID PRN pain #6 tabs 08/01/22 diphenhydramine HCl 25 mg capsule 25 mg PO BEDTIME PRN allergic 11/01/22 (Benadryl) reaction #30 caps famotidine 20 mg tablet (Acid 20 mg PO DAILY #5 tabs 11/01/22 Controller) prednisone 20 mg tablet 40 mg (2 x 20 mg) PO DAILY #10 tabs 11/01/22 acetaminophen 500 mg tablet 1,000 mg (2 x 500 mg) PO Q6H PRN 11/20/22 (Acetaminophen Extra Strength) pain #30 tabs amoxicillin 500 mg tablet 500 mg PO TID #21 tabs 08/04/23 oxycodone 5 mg tablet 5 mg PO Q6H PRN severe pain (scale 08/04/23 score 7-10) #12 tabs oxycodone 5 mg tablet 5 mg PO Q6H PRN pain #14 tabs 12/20/23 oxycodone 5 mg tablet 5 mg PO Q6H PRN pain #14 tabs 12/20/23 Allergies Allergy/AdvReac Type Severity Reaction Status Date / Time No Known Allergies Allergy Verified 12/20/23 12:39 [No Known Allergies*] [facility] Past Medical History Source: nursing notes reviewed Medical History Depression Anxiety PTSD (post-traumatic stress disorder) Back pain Surgical History Gastric bypass status for obesity Social History Social History Alcohol intake: never Smoked in Last 30 Days: No Use of substances other than those prescribed or required for medical reasons: No Substance Use Type: Marijuana Advance Directives: No Advance Directives Information Provided: No Current occupational status: unemployed Current occupation: lt hand Physical Exam ED Vital Signs: Vital Signs - 24 hr 12/20/23 12:37 12/20/23 15:28 Temperature 98.3 F 98.5 F Pulse Rate 97 88 Respiratory Rate 18 18 Blood Pressure 136/75 136/75 Pulse Oximetry 97 97 Oxygen Delivery Method Room Air Room Air BMI result Body Mass Index 40.1 General appearance is no acute distress he is uncomfortable from dental pain, he is not hemorrhaging from his mouth, he is able to speak and breathe easily The pharynx is clear with no redness or swelling, he is not choking on it the blood, bleeding from the teeth in the oral exam is very slow and minor Voice is normal Neck is supple Respiratory no distress Course Course Course Narrative: This is an RME performed by Eric Santos CNP: Additional HPI, ROS, PE not included below will be deferred to primary provider. Patient is a 38-year-old male who presents emergency department for evaluation. He had all of his remaining teeth removed from the upper and lower region today at [facility]. He states he severe pain, he did not realize that they were going to remove all of his teeth. When he told him that he was experiencing severe pain they said they could not offer him anything more than Tylenol and told him to come to the emergency department. He states that with any air entering his mouth he is in severe pain. He is not able to eat or drink anything. He is not aware of any particular diet that he is to follow after all of the extractions. He is given Tylenol here in the emergency department and oxycodone for home use, there is no major bleeding and bleeding is easily controlled with small gauze pads and patient is discharged with a prescription for oxycodone Discharge Plan Discharge Clinical Impression: Pain, dental Patient Disposition: Home, Self-Care Additional Instructions: There is no serious or dangerous bleeding now We gave Tylenol here in the emergency department There is a prescription for oxycodone for home use Maximum is 2 tablets every 6 hours with no driving for 6 hours after taking this medication Follow with a dentist Return any time any worse condition or any concerns Ibuprofen is not recommended because of her prior gastric surgery, if you think this is incorrect call the surgeon to find out if it is safe for you to take ibuprofen Prescriptions: New oxycodone 5 mg tablet 5 mg PO Q6H PRN (Reason: pain) Qty: 14 0RF Rx Instructions: Partial Fill upon patient request. oxycodone 5 mg tablet 5 mg PO Q6H PRN (Reason: pain) Qty: 14 0RF Rx Instructions: Partial Fill upon patient request. No Action amoxicillin-pot clavulanate [Augmentin] 875-125 mg tablet 1 tab PO Q12H 7 Days Qty: 14 0RF amoxicillin-pot clavulanate [Augmentin] 875-125 mg tablet 1 tab PO Q12H 7 Days Qty: 14 0RF amoxicillin-pot clavulanate [Augmentin] 875-125 mg tablet 1 tab PO BID 14 Days Qty: 28 0RF ibuprofen 800 mg tablet 800 mg PO Q8H PRN (Reason: pain) Qty: 14 0RF oxycodone 5 mg tablet 5 mg PO BID PRN (Reason: pain) Qty: 14 0RF acetaminophen [Tylenol Extra Strength] 500 mg tablet 1,000 mg PO QID PRN (Reason: fever or pain) Qty: 14 0RF prednisone 20 mg tablet 60 mg PO DAILY 4 Days Qty: 12 0RF acetaminophen 500 mg tablet 1,000 mg PO QID PRN (Reason: pain) Qty: 30 0RF oxycodone 5 mg tablet 5 mg PO Q6H PRN (Reason: pain) Qty: 14 0RF penicillin V potassium 500 mg tablet 500 mg PO BID Qty: 14 0RF ibuprofen 600 mg tablet 600 mg PO Q8H PRN (Reason: pain) Qty: 20 0RF hydrocodone-acetaminophen [[place]] 5-325 mg tablet 1 tab PO Q4-6H PRN (Reason: pain) Qty: 10 0RF Rx Instructions: for 3 days doxycycline monohydrate 100 mg capsule 100 mg PO BID 10 Days Qty: 20 0RF cephalexin [Keflex] 500 mg capsule 500 mg PO QID Qty: 28 0RF ibuprofen 600 mg tablet 600 mg PO Q8H PRN (Reason: pain) Qty: 20 0RF tramadol 50 mg tablet 50 mg PO BID PRN (Reason: pain) Qty: 7 0RF Rx Instructions: for 3 days amoxicillin-pot clavulanate [Augmentin] 875-125 mg tablet 1 tab PO BID Qty: 20 0RF tramadol 50 mg tablet 50 mg PO Q8H PRN (Reason: pain) Qty: 7 0RF ondansetron HCl [Zofran] 4 mg tablet 4 mg PO Q8H PRN (Reason: nausea and vomiting) Qty: 10 0RF prednisone 20 mg tablet 60 mg PO DAILY 5 Days Qty: 15 0RF oxycodone 5 mg tablet 5 mg PO Q8H PRN (Reason: pain) Qty: 5 0RF Rx Instructions: Gout flare tramadol 50 mg tablet 50 mg PO Q8H PRN (Reason: pain) Qty: 7 0RF amoxicillin-pot clavulanate [Augmentin] 875-125 mg tablet 1 tab PO BID 14 Days Qty: 28 0RF oxycodone-acetaminophen 5-325 mg tablet 1 tab PO Q6H PRN (Reason: pain) Qty: 10 0RF amoxicillin 500 mg tablet 500 mg PO TID Qty: 20 0RF ibuprofen 600 mg tablet 600 mg PO TID PRN (Reason: pain) Qty: 14 0RF acetaminophen [Tylenol Extra Strength] 500 mg tablet 1,000 mg PO QID PRN (Reason: fever or pain) Qty: 30 0RF tramadol 50 mg tablet 50 mg PO Q8H PRN (Reason: pain) Qty: 5 0RF prednisone 20 mg tablet 40 mg PO DAILY 5 Days Qty: 10 0RF tramadol 50 mg tablet 50 mg PO BID PRN (Reason: pain) Qty: 6 0RF prednisone 20 mg tablet 40 mg PO DAILY Qty: 10 0RF famotidine [Acid Controller] 20 mg tablet 20 mg PO DAILY Qty: 5 0RF diphenhydramine HCl [Benadryl] 25 mg capsule 25 mg PO BEDTIME PRN (Reason: allergic reaction) Qty: 30 0RF acetaminophen [Acetaminophen Extra Strength] 500 mg tablet 1,000 mg PO Q6H PRN (Reason: pain) Qty: 30 0RF amoxicillin 500 mg tablet 500 mg PO TID Qty: 21 0RF oxycodone 5 mg tablet 5 mg PO Q6H PRN (Reason: severe pain (scale score 7-10)) Qty: 12 0RF Rx Instructions: Partial Fill upon patient request. Print Language: Mosoth[place]
[2023-12-20 12:37] VITALS: BP 136/75; PULSE 97; RESP 18; TEMP 36.8; O2SAT 97; BMI 40.1
[2023-12-20 15:28] VITALS: BP 136/75; PULSE 88; RESP 18; TEMP 36.9; O2SAT 97
[2023-12-20] MEDS: Acetaminophen 325 MG TABLET 975 MG PO (15:52)
[2023-12-20 15:58] VITALS: BP 129/79; PULSE 81; RESP 18; TEMP 36.9; O2SAT 97
== END 2023-12-20 16:02 | disposition home or self-care (01) ==
PROVIDERS: Emergency Provider Emergency Medicine Emergency Medical Services
DX: K08.89 Other specified disorders of teeth and supporting structures (principal); Z79.899 Other long term (current) drug therapy
CPT/HCPCS: 99283; 99284